=== PATIENT | male | born 1950 ===

== ENCOUNTER 2017-02-22 10:18 | Inpatient (IN) ==
[2017-02-22] MEDS ORDERED: chlordiazePOXIDE 25 MG CAPSULE PO PRN (12:00)
[2017-02-22] MEDS ORDERED: LORazepam 2 MG/1 ML VIAL IV PRN (12:00)
[2017-02-22] MEDS: ALBUTEROL/IPRATROPIUM 3 ML NEB RESP TX SCH ×2 (12:30→20:50)
[2017-02-22 14:22] LABS: Bilirubin,Direct 3.23 MG/DL (0.0-0.20); Bilirubin,Indirect 1.2 MG/DL (0.0-1.0); Bilirubin,Total 4.4 MG/DL (0.2-1.0); Total Protein 6.9 G/DL (6.4-8.3)
[2017-02-22] MEDS: PIPERACILLIN/TAZOBACTAM 3,375 MG in SODIUM CHLORIDE 0.9% 100 ML IV SCH ×2 (14:30→21:37)
[2017-02-22] MEDS: guaiFENesin 200 MG/10 ML UDCUP PO PRN (15:30)
[2017-02-22] MEDS: ACETAMINOPHEN 325 MG TABLET PO PRN (15:31)
[2017-02-22] MEDS: VANCOMYCIN INJ 1,250 MG in SODIUM CHLORIDE 0.45% 250 ML IV SCH (18:17)
[2017-02-22] MEDS: guaiFENesin/DM ER 600-30 MG TABLET PO SCH (20:38)
[2017-02-22] MEDS: OSELTAMIVIR 75 MG CAPSULE PO SCH (20:38)
[2017-02-23] MEDS: ALBUTEROL/IPRATROPIUM 3 ML NEB RESP TX SCH ×4 (00:34→19:40)
[2017-02-23] MEDS: PIPERACILLIN/TAZOBACTAM 3,375 MG in SODIUM CHLORIDE 0.9% 100 ML IV SCH ×3 (05:11→21:18)
[2017-02-23] MEDS: ACETAMINOPHEN 325 MG TABLET PO PRN (05:52)
[2017-02-23 08:45] LABS: Basophils # 0.1 10*3/uL (0.0-0.2); Basophils % 0.5 % (0.0-0.8); Eosinophils % 0.4 % (0.00-10.9); Hematocrit 27.1 VOL% (42.0-52.0); Immature Granulocytes % 1.2 %; Immature Granulocytes Absolute 0.12 #; Lymphocytes # 0.8 10*3/uL (1.4-4.0); Lymphocytes % 7.3 % (21.2-54.2); Mean Corpuscular HGB Conc 36.9 GM/DL (32-36); Mean Corpuscular Hemoglobin 40 PG (27-34); Mean Corpuscular Volume 107.1 FL (87-102); Mean Platelet Volume 11.3 FL (9.6-12.0); Monocytes # 0.9 10*3/uL (0.11-0.8); Monocytes % 8.4 % (1.7-12.7); Neutrophils # 8.5 10*3/uL (1.4-7.4); Neutrophils % 82.2 % (38.7-73.9); Red Blood Count 2.53 MC/CUMM (3.8-5.5); Red Cell Distribution Width 18.2 % (9.3-17.3); White Blood Count 10.3 T/CUMM (4-12)
[2017-02-23 08:52] LABS: Platelet Count 64 T/CUMM (130-400)
[2017-02-23 09:08] LABS: Albumin 1.6 G/DL (3.4-5.0); Bilirubin,Total 4.2 MG/DL (0.2-1.0); Calcium 7.2 MG/DL (8.5-10.1); Osmolality,Calculated 276.4 MOS/KG (273-304); Potassium 3.2 MMOL/L (3.5-5.1); Total Protein 5.6 G/DL (6.4-8.3)
[2017-02-23 09:14] LABS: Band Neutrophils 7 % (0-10); Eosinophils 1 % (0-10); Lymphocytes 2 % (20-55); Segmented Neutrophils 85 % (50-85); Total Cells Counted 100
[2017-02-23 09:15] LABS: Hypochromasia 1+; Platelet Estimate Decreased
[2017-02-23] MEDS: guaiFENesin/DM ER 600-30 MG TABLET PO SCH ×2 (09:40→21:18)
[2017-02-23] MEDS: OSELTAMIVIR 75 MG CAPSULE PO SCH ×2 (09:40→21:18)
[2017-02-23] MEDS: VANCOMYCIN INJ 1,250 MG in SODIUM CHLORIDE 0.45% 250 ML IV SCH (12:35)
[2017-02-24] MEDS: ALBUTEROL/IPRATROPIUM 3 ML NEB RESP TX SCH ×4 (00:43→21:03)
[2017-02-24] MEDS: VANCOMYCIN INJ 1,250 MG in SODIUM CHLORIDE 0.45% 250 ML IV SCH (05:17)
[2017-02-24 06:25] LABS: Calcium 7.1 MG/DL (8.5-10.1); Osmolality,Calculated 272.7 MOS/KG (273-304); Potassium 3.1 MMOL/L (3.5-5.1)
[2017-02-24] MEDS: PIPERACILLIN/TAZOBACTAM 3,375 MG in SODIUM CHLORIDE 0.9% 100 ML IV SCH ×3 (06:33→21:00)
[2017-02-24] MEDS: guaiFENesin/DM ER 600-30 MG TABLET PO SCH ×2 (09:05→21:01)
[2017-02-24] MEDS: OSELTAMIVIR 75 MG CAPSULE PO SCH ×2 (09:05→21:01)
[2017-02-24] MEDS: POTASSIUM CHLORIDE 20 MEQ TABLET PO SCH (09:05)
[2017-02-25] MEDS: ALBUTEROL/IPRATROPIUM 3 ML NEB RESP TX SCH ×4 (01:38→19:33)
[2017-02-25] MEDS: VANCOMYCIN INJ 1,250 MG in SODIUM CHLORIDE 0.45% 250 ML IV SCH ×2 (03:02→19:54)
[2017-02-25] MEDS: PIPERACILLIN/TAZOBACTAM 3,375 MG in SODIUM CHLORIDE 0.9% 100 ML IV SCH ×3 (05:00→21:50)
[2017-02-25 07:32] LABS: Basophils # 0.1 10*3/uL (0.0-0.2); Eosinophils # 0.5 10*3/uL (0.0-0.87); Hemoglobin 10.9 GM/DL (14.0-18.0); Immature Granulocytes % 0.4 %; Immature Granulocytes Absolute 0.02 #; Lymphocytes # 1.9 10*3/uL (1.4-4.0); Lymphocytes % 39.1 % (21.2-54.2); Mean Corpuscular HGB Conc 35.2 GM/DL (32-36); Mean Corpuscular Hemoglobin 38 PG (27-34); Mean Corpuscular Volume 109.2 FL (87-102); Mean Platelet Volume 11.2 FL (9.6-12.0); Monocytes # 0.6 10*3/uL (0.11-0.8); Monocytes % 13.3 % (1.7-12.7); Neutrophils # 1.7 10*3/uL (1.4-7.4); Neutrophils % 35.2 % (38.7-73.9); Red Blood Count 2.84 MC/CUMM (3.8-5.5); Red Cell Distribution Width 17.8 % (9.3-17.3); White Blood Count 4.8 T/CUMM (4-12)
[2017-02-25 07:39] LABS: Platelet Count 73 T/CUMM (130-400)
[2017-02-25 08:05] LABS: Calcium 7.6 MG/DL (8.5-10.1); Osmolality,Calculated 272.7 MOS/KG (273-304); Potassium 3.5 MMOL/L (3.5-5.1)
[2017-02-25 08:12] LABS: Band Neutrophils 2 % (0-10); Eosinophils 7 % (0-10); Giant Platelets Few; Hypochromasia 1+; Lymphocytes 36 % (20-55); Platelet Estimate Decreased; Segmented Neutrophils 42 % (50-85); Total Cells Counted 100
[2017-02-25] MEDS: POTASSIUM CHLORIDE 20 MEQ TABLET PO SCH (08:57)
[2017-02-25] MEDS: guaiFENesin 200 MG/10 ML UDCUP PO PRN (08:57)
[2017-02-25] MEDS: guaiFENesin/DM ER 600-30 MG TABLET PO SCH ×2 (08:58→19:59)
[2017-02-25] MEDS: OSELTAMIVIR 75 MG CAPSULE PO SCH ×2 (08:58→19:59)
[2017-02-26] MEDS: ALBUTEROL/IPRATROPIUM 3 ML NEB RESP TX SCH ×2 (00:04→07:27)
[2017-02-26] MEDS: guaiFENesin 200 MG/10 ML UDCUP PO PRN (04:46)
[2017-02-26] MEDS: PIPERACILLIN/TAZOBACTAM 3,375 MG in SODIUM CHLORIDE 0.9% 100 ML IV SCH (05:00)
[2017-02-26] MEDS: OSELTAMIVIR 75 MG CAPSULE PO SCH (09:10)
[2017-02-26] MEDS: guaiFENesin/DM ER 600-30 MG TABLET PO SCH (09:10)
[2017-02-26] MEDS: POTASSIUM CHLORIDE 20 MEQ TABLET PO SCH (09:10)
[2017-02-26 11:56] VITALS: BP 118/66
== END 2017-02-26 11:53 | disposition home or self-care (01) | DRG 195 ==
LOC: N.ED 10:18 → N.EDINP 10:38 → N.5E 13:11

== ENCOUNTER 2017-03-25 23:48 | Inpatient (IN) ==
[2017-03-26] MEDS ORDERED: FUROSEMIDE 40 MG/4 ML VIAL IV STA (02:30)
[2017-03-26] MEDS ORDERED: FUROSEMIDE 40 MG/4 ML VIAL ONE (02:31)
[2017-03-26] MEDS ORDERED: LORazepam 2 MG/1 ML VIAL IV STA (02:51)
[2017-03-26] MEDS ORDERED: LORazepam 2 MG/1 ML VIAL ONE (02:52)
[2017-03-26] MEDS ORDERED: ONDANSETRON 4 MG/2 ML VIAL IV PRN (03:31)
[2017-03-26] MEDS ORDERED: ALBUTEROL/IPRATROPIUM 3 ML NEB RESP TX PRN (03:36)
[2017-03-26 04:10] LABS: Apearance,Urine CLEAR (Clear); Bilirubin,Urine Negative (Negative); Blood, Urine Negative (Negative); Glucose,Urine (UA) Negative (Negative); Ketones,Urine Negative (Negative); Mucus,Urine Occasional /LPF (Occasional); Nitrite,Urine Negative (Negative); Protein,Urine Negative; RBC,Urine 2 /HPF (0-4); Urine Color Yellow (Yellow); Urine Specific Gravity 1.012 (1.001-1.035); WBC,Urine 2 /HPF (0-6)
[2017-03-26] MEDS: SODIUM CHLOR 0.45% KCL 20 MEQ 20 MEQ/1,000 ML BAG IV SCH ×2 (06:23→18:38)
[2017-03-26 07:02] LABS: Basophils # 0.1 10*3/uL (0.0-0.2); Basophils % 1.1 % (0.0-0.8); Eosinophils % 16.9 % (0.00-10.9); Hematocrit 29.8 VOL% (42.0-52.0); Hemoglobin 10.6 GM/DL (14.0-18.0); Immature Granulocytes % 0.2 %; Immature Granulocytes Absolute 0.01 #; Lymphocytes % 32.5 % (21.2-54.2); Mean Corpuscular HGB Conc 35.6 GM/DL (32-36); Mean Corpuscular Hemoglobin 38 PG (27-34); Mean Corpuscular Volume 106.8 FL (87-102); Mean Platelet Volume 11.5 FL (9.6-12.0); Monocytes % 16.6 % (1.7-12.7); Neutrophils % 32.7 % (38.7-73.9); Red Blood Count 2.79 MC/CUMM (3.8-5.5); Red Cell Distribution Width 16.1 % (9.3-17.3); White Blood Count 6.1 T/CUMM (4-12)
[2017-03-26 07:05] LABS: Platelet Count 88 T/CUMM (130-400)
[2017-03-26 07:25] LABS: Eosinophils 24 % (0-10); Giant Platelets Few; Hypochromasia 1+; Lymphocytes 22 % (20-55); Platelet Estimate Decreased; Segmented Neutrophils 44 % (50-85); Total Cells Counted 100
[2017-03-26 07:26] LABS: Target Cells Few
[2017-03-26 07:35] LABS: Albumin 1.8 G/DL (3.4-5.0); Bilirubin,Total 2.3 MG/DL (0.2-1.0); Calcium 7.7 MG/DL (8.5-10.1); Osmolality,Calculated 287.6 MOS/KG (273-304); Potassium 3.2 MMOL/L (3.5-5.1); Total Protein 6.8 G/DL (6.4-8.3)
[2017-03-26] MEDS: LACTULOSE 20 GM/30 ML UDCUP PO SCH ×5 (10:52→23:03)
[2017-03-26] MEDS: MULTIVITAMIN (CENTRUM) TABLET PO SCH (10:52)
[2017-03-26] MEDS: THIAMINE 100 MG TABLET PO SCH (10:53)
[2017-03-26] MEDS: FOLIC ACID 1 MG TABLET PO SCH (10:53)
[2017-03-26] MEDS: PANTOPRAZOLE 40 MG TABLET PO SCH (10:53)
[2017-03-26] MEDS ORDERED: POTASSIUM CHLORIDE RIDER 10 MEQ in PREMIX 1 EACH IV SCH (15:00)
[2017-03-26] MEDS ORDERED: LACTULOSE 160 GM/240 ML BOTTLE RECTAL SCH (15:00)
[2017-03-26 15:32] LABS: Folate 14.3 NG/ML (5.4-24.0)
[2017-03-26] MEDS ORDERED: POTASSIUM CHLORIDE INJ 40 MEQ in SODIUM CHLORIDE 0.9% 500 ML IV SCH (16:00)
[2017-03-26] MEDS: LORazepam 2 MG/1 ML VIAL IV PRN ×3 (16:20→22:11)
[2017-03-27] MEDS: LORazepam 2 MG/1 ML VIAL IV PRN (01:15)
[2017-03-27 05:20] LABS: Basophils # 0.1 10*3/uL (0.0-0.2); Basophils % 1.2 % (0.0-0.8); Hematocrit 27.5 VOL% (42.0-52.0); Hemoglobin 9.7 GM/DL (14.0-18.0); Immature Granulocytes % 0.7 %; Immature Granulocytes Absolute 0.04 #; Lymphocytes # 1.9 10*3/uL (1.4-4.0); Lymphocytes % 31.6 % (21.2-54.2); Mean Corpuscular HGB Conc 35.3 GM/DL (32-36); Mean Corpuscular Hemoglobin 38 PG (27-34); Mean Corpuscular Volume 107.4 FL (87-102); Mean Platelet Volume 11.8 FL (9.6-12.0); Monocytes # 0.8 10*3/uL (0.11-0.8); Neutrophils # 2.2 10*3/uL (1.4-7.4); Neutrophils % 36.5 % (38.7-73.9); Red Blood Count 2.56 MC/CUMM (3.8-5.5); Red Cell Distribution Width 16.2 % (9.3-17.3); White Blood Count 5.9 T/CUMM (4-12)
[2017-03-27] MEDS: LACTULOSE 20 GM/30 ML UDCUP PO SCH ×3 (05:24→18:13)
[2017-03-27 05:32] LABS: Platelet Count 76 T/CUMM (130-400)
[2017-03-27 05:43] LABS: Albumin 1.5 G/DL (3.4-5.0); Bilirubin,Total 2.7 MG/DL (0.2-1.0); Calcium 7.4 MG/DL (8.5-10.1); Potassium 3.5 MMOL/L (3.5-5.1); Total Protein 5.4 G/DL (6.4-8.3)
[2017-03-27 06:14] LABS: Eosinophils 16 % (0-10); Hypochromasia 1+; Lymphocytes 30 % (20-55); Segmented Neutrophils 44 % (50-85); Target Cells Few; Total Cells Counted 100
[2017-03-27 06:15] LABS: Macrocytosis 1+; Platelet Estimate Decreased
[2017-03-27] MEDS: SODIUM CHLOR 0.45% KCL 20 MEQ 20 MEQ/1,000 ML BAG IV SCH (07:22)
[2017-03-27] MEDS ORDERED: LACTULOSE 160 GM/240 ML BOTTLE RECTAL ONE (09:00)
[2017-03-27] MEDS: MULTIVITAMIN (CENTRUM) TABLET PO SCH (09:35)
[2017-03-27] MEDS: FOLIC ACID 1 MG TABLET PO SCH (09:35)
[2017-03-27] MEDS: PANTOPRAZOLE 40 MG TABLET PO SCH (09:35)
[2017-03-27] MEDS: THIAMINE 100 MG TABLET PO SCH (09:36)
[2017-03-27] MEDS ORDERED: LACTULOSE 160 GM/240 ML BOTTLE RECTAL SCH (12:30)
[2017-03-27] MEDS: POTASSIUM CHLORIDE 20 MEQ TABLET PO SCH (12:37)
[2017-03-27] MEDS: FUROSEMIDE 20 MG/2 ML VIAL IV SCH (15:45)
[2017-03-28] MEDS: LACTULOSE 20 GM/30 ML UDCUP PO SCH ×4 (02:15→17:03)
[2017-03-28 05:28] LABS: Basophils % 0.4 % (0.0-0.8); Eosinophils # 0.1 10*3/uL (0.0-0.87); Eosinophils % 0.7 % (0.00-10.9); Hematocrit 30.9 VOL% (42.0-52.0); Hemoglobin 10.8 GM/DL (14.0-18.0); Immature Granulocytes % 0.5 %; Immature Granulocytes Absolute 0.05 #; Lymphocytes # 1.4 10*3/uL (1.4-4.0); Mean Corpuscular Hemoglobin 38 PG (27-34); Mean Corpuscular Volume 108.4 FL (87-102); Mean Platelet Volume 12.3 FL (9.6-12.0); Monocytes # 1.4 10*3/uL (0.11-0.8); Monocytes % 15.5 % (1.7-12.7); Neutrophils # 6.2 10*3/uL (1.4-7.4); Neutrophils % 67.9 % (38.7-73.9); Platelet Count 77 T/CUMM (130-400); Red Blood Count 2.85 MC/CUMM (3.8-5.5); Red Cell Distribution Width 15.9 % (9.3-17.3); White Blood Count 9.2 T/CUMM (4-12)
[2017-03-28 06:00] LABS: Albumin 1.6 G/DL (3.4-5.0); Bilirubin,Total 3.5 MG/DL (0.2-1.0); Calcium 7.5 MG/DL (8.5-10.1); Osmolality,Calculated 287.7 MOS/KG (273-304); Potassium 3.5 MMOL/L (3.5-5.1); Total Protein 6.3 G/DL (6.4-8.3)
[2017-03-28 06:09] LABS: Giant Platelets Few; Hypochromasia 1+; Platelet Estimate Decreased
[2017-03-28] MEDS: THIAMINE 100 MG TABLET PO SCH (08:53)
[2017-03-28] MEDS: FOLIC ACID 1 MG TABLET PO SCH (08:53)
[2017-03-28] MEDS: PANTOPRAZOLE 40 MG TABLET PO SCH (08:53)
[2017-03-28] MEDS: MULTIVITAMIN (CENTRUM) TABLET PO SCH (08:53)
[2017-03-28] MEDS: POTASSIUM CHLORIDE 20 MEQ TABLET PO SCH (08:53)
[2017-03-28] MEDS: FUROSEMIDE 20 MG/2 ML VIAL IV SCH ×2 (09:04→15:28)
[2017-03-28 13:52] LABS: ABG Base Excess -1.3 MMOL/L (-2.5-2.5); ABG HCO3 23.3 MMOL/L (20-26); ABG Oxygen Saturation 98.7 % (95-100); ABG PCO2 35.7 MM HG (35-48); ABG PH 7.414 (7.35-7.45); ABG TCO2 20.7 MMOL/L (23-27)
[2017-03-28] MEDS ORDERED: GENTAMICIN 0.3% OPH OINT 3.5 GM TUBE BOTH EYES SCH (15:00)
[2017-03-28] MEDS: RIFAXIMIN 550 MG TABLET PO SCH ×2 (15:28→20:40)
[2017-03-28] MEDS: GENTAMICIN 0.3% OPH SOLN 5 ML BOTTLE BOTH EYES SCH (20:38)
[2017-03-29] MEDS: LACTULOSE 20 GM/30 ML UDCUP PO SCH ×4 (01:43→17:51)
[2017-03-29 05:45] LABS: Basophils # 0.1 10*3/uL (0.0-0.2); Eosinophils # 1.4 10*3/uL (0.0-0.87); Eosinophils % 14.6 % (0.00-10.9); Hematocrit 29.6 VOL% (42.0-52.0); Hemoglobin 10.3 GM/DL (14.0-18.0); Immature Granulocytes % 0.4 %; Immature Granulocytes Absolute 0.04 #; Lymphocytes # 2.6 10*3/uL (1.4-4.0); Lymphocytes % 28.2 % (21.2-54.2); Mean Corpuscular HGB Conc 34.8 GM/DL (32-36); Mean Corpuscular Hemoglobin 38 PG (27-34); Mean Corpuscular Volume 107.6 FL (87-102); Mean Platelet Volume 11.4 FL (9.6-12.0); Monocytes # 1.5 10*3/uL (0.11-0.8); Monocytes % 15.7 % (1.7-12.7); Neutrophils # 3.7 10*3/uL (1.4-7.4); Neutrophils % 40.1 % (38.7-73.9); Platelet Count 72 T/CUMM (130-400); Red Blood Count 2.75 MC/CUMM (3.8-5.5); Red Cell Distribution Width 15.4 % (9.3-17.3); White Blood Count 9.3 T/CUMM (4-12)
[2017-03-29 06:31] LABS: Albumin 1.6 G/DL (3.4-5.0); Bilirubin,Total 3.4 MG/DL (0.2-1.0); Calcium 7.8 MG/DL (8.5-10.1); Osmolality,Calculated 280.3 MOS/KG (273-304); Potassium 3.4 MMOL/L (3.5-5.1); Total Protein 6.2 G/DL (6.4-8.3)
[2017-03-29 06:47] LABS: Eosinophils 14 % (0-10); Lymphocytes 19 % (20-55); Macrocytosis 2+; Platelet Estimate Decreased; Segmented Neutrophils 61 % (50-85); Total Cells Counted 100
[2017-03-29] MEDS: FUROSEMIDE 20 MG/2 ML VIAL IV SCH (08:53)
[2017-03-29] MEDS: FOLIC ACID 1 MG TABLET PO SCH (08:54)
[2017-03-29] MEDS: RIFAXIMIN 550 MG TABLET PO SCH ×2 (08:54→21:32)
[2017-03-29] MEDS: PANTOPRAZOLE 40 MG TABLET PO SCH (08:54)
[2017-03-29] MEDS: GENTAMICIN 0.3% OPH SOLN 5 ML BOTTLE BOTH EYES SCH ×4 (08:54→21:32)
[2017-03-29] MEDS: THIAMINE 100 MG TABLET PO SCH (08:54)
[2017-03-29] MEDS: MULTIVITAMIN (CENTRUM) TABLET PO SCH (08:54)
[2017-03-29] MEDS: POTASSIUM CHLORIDE 20 MEQ TABLET PO SCH (08:59)
[2017-03-30] MEDS: LACTULOSE 20 GM/30 ML UDCUP PO SCH ×4 (01:50→18:20)
[2017-03-30 05:00] LABS: Basophils # 0.1 10*3/uL (0.0-0.2); Basophils % 0.8 % (0.0-0.8); Eosinophils # 1.7 10*3/uL (0.0-0.87); Eosinophils % 21.5 % (0.00-10.9); Hemoglobin 10.6 GM/DL (14.0-18.0); Immature Granulocytes % 0.4 %; Immature Granulocytes Absolute 0.03 #; Lymphocytes # 2.1 10*3/uL (1.4-4.0); Lymphocytes % 26.4 % (21.2-54.2); Mean Corpuscular HGB Conc 36.6 GM/DL (32-36); Mean Corpuscular Hemoglobin 39 PG (27-34); Mean Corpuscular Volume 105.5 FL (87-102); Mean Platelet Volume 12.7 FL (9.6-12.0); Monocytes # 1.1 10*3/uL (0.11-0.8); Neutrophils # 2.9 10*3/uL (1.4-7.4); Neutrophils % 36.9 % (38.7-73.9); Platelet Count 77 T/CUMM (130-400); Red Blood Count 2.75 MC/CUMM (3.8-5.5); Red Cell Distribution Width 15.3 % (9.3-17.3); White Blood Count 7.8 T/CUMM (4-12)
[2017-03-30 05:31] LABS: Albumin 1.6 G/DL (3.4-5.0); Bilirubin,Total 2.8 MG/DL (0.2-1.0); Calcium 7.6 MG/DL (8.5-10.1); Osmolality,Calculated 273.7 MOS/KG (273-304); Potassium 3.5 MMOL/L (3.5-5.1); Total Protein 6.1 G/DL (6.4-8.3)
[2017-03-30 05:35] LABS: Band Neutrophils 1 % (0-10); Eosinophils 25 % (0-10); Hypochromasia 1+; Lymphocytes 23 % (20-55); Macrocytosis 1+; Platelet Estimate Decreased; Segmented Neutrophils 44 % (50-85); Target Cells Slight; Total Cells Counted 100
[2017-03-30] MEDS: PANTOPRAZOLE 40 MG TABLET PO SCH (10:21)
[2017-03-30] MEDS: MULTIVITAMIN (CENTRUM) TABLET PO SCH (10:21)
[2017-03-30] MEDS: FOLIC ACID 1 MG TABLET PO SCH (10:21)
[2017-03-30] MEDS: POTASSIUM CHLORIDE 20 MEQ TABLET PO SCH (10:21)
[2017-03-30] MEDS: THIAMINE 100 MG TABLET PO SCH (10:21)
[2017-03-30] MEDS: RIFAXIMIN 550 MG TABLET PO SCH ×2 (10:22→20:30)
[2017-03-30] MEDS: GENTAMICIN 0.3% OPH SOLN 5 ML BOTTLE BOTH EYES SCH ×3 (12:30→20:28)
[2017-03-30] MEDS: SPIRONOLACTONE 25 MG TABLET PO SCH (18:20)
[2017-03-30] MEDS: FUROSEMIDE 40 MG TABLET PO SCH (18:20)
[2017-03-30] MEDS: cefTRIAXone 2,000 MG in SYRINGE 1 EACH IV SCH (18:20)
[2017-03-30] MEDS: LACTULOSE 160 GM/240 ML BOTTLE RECTAL SCH (18:20)
[2017-03-31] MEDS: LACTULOSE 20 GM/30 ML UDCUP PO SCH ×5 (00:27→23:54)
[2017-03-31] MEDS: LACTULOSE 160 GM/240 ML BOTTLE RECTAL SCH ×3 (01:00→14:05)
[2017-03-31 06:06] LABS: Calcium 7.3 MG/DL (8.5-10.1); Osmolality,Calculated 275.5 MOS/KG (273-304); Potassium 3.4 MMOL/L (3.5-5.1)
[2017-03-31] MEDS: FUROSEMIDE 40 MG TABLET PO SCH (09:47)
[2017-03-31] MEDS: SPIRONOLACTONE 25 MG TABLET PO SCH (09:47)
[2017-03-31] MEDS: MULTIVITAMIN (CENTRUM) TABLET PO SCH (09:48)
[2017-03-31] MEDS: RIFAXIMIN 550 MG TABLET PO SCH ×2 (09:49→20:55)
[2017-03-31] MEDS: POTASSIUM CHLORIDE 20 MEQ TABLET PO SCH (09:50)
[2017-03-31] MEDS: THIAMINE 100 MG TABLET PO SCH (09:51)
[2017-03-31] MEDS: FOLIC ACID 1 MG TABLET PO SCH (09:52)
[2017-03-31] MEDS: PANTOPRAZOLE 40 MG TABLET PO SCH (09:52)
[2017-03-31] MEDS: GENTAMICIN 0.3% OPH SOLN 5 ML BOTTLE BOTH EYES SCH ×3 (09:54→20:56)
[2017-03-31] MEDS: cefTRIAXone 2,000 MG in SYRINGE 1 EACH IV SCH (17:50)
[2017-04-01] MEDS: traMADol 50 MG TABLET PO PRN ×2 (01:24→11:20)
[2017-04-01 05:35] LABS: Albumin 1.5 G/DL (3.4-5.0); Bilirubin,Total 1.9 MG/DL (0.2-1.0); Calcium 7.4 MG/DL (8.5-10.1); Total Protein 6.1 G/DL (6.4-8.3)
[2017-04-01 05:36] LABS: Osmolality,Calculated 273.5 MOS/KG (273-304); Potassium 3.5 MMOL/L (3.5-5.1)
[2017-04-01] MEDS: LACTULOSE 20 GM/30 ML UDCUP PO SCH ×3 (06:42→21:50)
[2017-04-01] MEDS: MULTIVITAMIN (CENTRUM) TABLET PO SCH (11:13)
[2017-04-01] MEDS: RIFAXIMIN 550 MG TABLET PO SCH ×2 (11:14→21:50)
[2017-04-01] MEDS: PANTOPRAZOLE 40 MG TABLET PO SCH (11:15)
[2017-04-01] MEDS: POTASSIUM CHLORIDE 20 MEQ TABLET PO SCH (11:15)
[2017-04-01] MEDS: SPIRONOLACTONE 25 MG TABLET PO SCH (11:16)
[2017-04-01] MEDS: FUROSEMIDE 40 MG TABLET PO SCH (11:16)
[2017-04-01] MEDS: FOLIC ACID 1 MG TABLET PO SCH (11:16)
[2017-04-01] MEDS: THIAMINE 100 MG TABLET PO SCH (11:17)
[2017-04-01] MEDS: GENTAMICIN 0.3% OPH SOLN 5 ML BOTTLE BOTH EYES SCH ×3 (11:23→21:50)
[2017-04-01] MEDS: cefTRIAXone 2,000 MG in SYRINGE 1 EACH IV SCH (18:19)
[2017-04-02] MEDS: LACTULOSE 20 GM/30 ML UDCUP PO SCH ×4 (02:48→23:53)
[2017-04-02 06:27] LABS: Calcium 7.6 MG/DL (8.5-10.1)
[2017-04-02] MEDS: MULTIVITAMIN (CENTRUM) TABLET PO SCH (09:34)
[2017-04-02] MEDS: THIAMINE 100 MG TABLET PO SCH (09:34)
[2017-04-02] MEDS: RIFAXIMIN 550 MG TABLET PO SCH (09:34)
[2017-04-02] MEDS: SPIRONOLACTONE 25 MG TABLET PO SCH (09:35)
[2017-04-02] MEDS: FUROSEMIDE 40 MG TABLET PO SCH (09:35)
[2017-04-02] MEDS: FOLIC ACID 1 MG TABLET PO SCH (09:35)
[2017-04-02] MEDS: traMADol 50 MG TABLET PO PRN (09:35)
[2017-04-02] MEDS: PANTOPRAZOLE 40 MG TABLET PO SCH (09:35)
[2017-04-02] MEDS: POTASSIUM CHLORIDE 20 MEQ TABLET PO SCH (09:35)
[2017-04-02] MEDS: GENTAMICIN 0.3% OPH SOLN 5 ML BOTTLE BOTH EYES SCH ×3 (09:36→20:32)
[2017-04-02] MEDS ORDERED: TUBERCULIN SKIN TEST 0.1 ML SYRINGE INTRADERM ONE (12:38)
[2017-04-02] MEDS: cefTRIAXone 2,000 MG in SYRINGE 1 EACH IV SCH (18:37)
[2017-04-03] MEDS: LACTULOSE 20 GM/30 ML UDCUP PO SCH (06:16)
[2017-04-03] MEDS: THIAMINE 100 MG TABLET PO SCH (08:48)
[2017-04-03] MEDS: SPIRONOLACTONE 25 MG TABLET PO SCH (08:48)
[2017-04-03] MEDS: POTASSIUM CHLORIDE 20 MEQ TABLET PO SCH (08:48)
[2017-04-03] MEDS: FOLIC ACID 1 MG TABLET PO SCH (08:48)
[2017-04-03] MEDS: PANTOPRAZOLE 40 MG TABLET PO SCH (08:48)
[2017-04-03] MEDS: FUROSEMIDE 40 MG TABLET PO SCH (08:48)
[2017-04-03] MEDS: MULTIVITAMIN (CENTRUM) TABLET PO SCH (08:48)
[2017-04-03] MEDS: GENTAMICIN 0.3% OPH SOLN 5 ML BOTTLE BOTH EYES SCH (08:49)
[2017-04-03] MEDS ORDERED: LACTULOSE 20 GM/30 ML UDCUP PO SCH (08:52)
[2017-04-03 12:22] VITALS: BP 105/64
== END 2017-04-03 13:01 | disposition home or self-care (01) | DRG 441 ==
LOC: EDUNIT# → EDBD → N.ED 23:48 → SUATTDRO 03-26 03:31 → N.EDINP 03-26 03:31 → N.TELEN 03-26 04:06 → N.ICU 03-26 10:45 → N.4E 03-27 17:19
PROVIDERS: ADMIT Internal Medicine; ATTEND Internal Medicine

== ENCOUNTER 2017-04-27 12:28 | Inpatient (IN) ==
[2017-04-27] MEDS ORDERED: INFLUENZA VIRUS VACCINE 0.5 ML SYRINGE IM ONE (15:40)
[2017-04-27] MEDS ORDERED: PNEUMOCOCCAL VACCINE (13 VALENT) 0.5 ML SYRINGE IM ONE (15:40)
[2017-04-27] MEDS ORDERED: ONDANSETRON 4 MG/2 ML VIAL IV PRN (16:50)
[2017-04-27] MEDS ORDERED: LORazepam 0.5 MG TABLET PO PRN (17:13)
[2017-04-27 17:31] LABS: Basophils # 0.1 10*3/uL (0.0-0.2); Basophils % 1.5 % (0.0-0.8); Eosinophils # 0.7 10*3/uL (0.0-0.87); Hematocrit 30.1 VOL% (42.0-52.0); Hemoglobin 10.3 GM/DL (14.0-18.0); Immature Granulocytes % 0.2 %; Immature Granulocytes Absolute 0.01 #; Lymphocytes # 1.5 10*3/uL (1.4-4.0); Lymphocytes % 35.8 % (21.2-54.2); Mean Corpuscular HGB Conc 34.2 GM/DL (32-36); Mean Corpuscular Hemoglobin 37 PG (27-34); Mean Corpuscular Volume 108.3 FL (87-102); Mean Platelet Volume 11.2 FL (9.6-12.0); Monocytes # 0.5 10*3/uL (0.11-0.8); Monocytes % 12.9 % (1.7-12.7); Neutrophils # 1.3 10*3/uL (1.4-7.4); Neutrophils % 31.6 % (38.7-73.9); Red Blood Count 2.78 MC/CUMM (3.8-5.5); Red Cell Distribution Width 18.3 % (9.3-17.3); White Blood Count 4.1 T/CUMM (4-12)
[2017-04-27 17:37] LABS: Platelet Count 94 T/CUMM (130-400)
[2017-04-27 17:46] LABS: INR 1.3; PT Patient Result 13.4 SECS
[2017-04-27] MEDS: LACTULOSE 20 GM/30 ML UDCUP PO SCH ×2 (17:55→21:24)
[2017-04-27 18:00] LABS: Albumin 1.8 G/DL (3.4-5.0); Bilirubin,Total 2.2 MG/DL (0.2-1.0); Calcium 8.2 MG/DL (8.5-10.1); Osmolality,Calculated 285.7 MOS/KG (273-304); Potassium 3.5 MMOL/L (3.5-5.1); Total Protein 6.6 G/DL (6.4-8.3)
[2017-04-27] MEDS ORDERED: MULTIVITAMIN INJ 10 ML in SODIUM CHLORIDE 0.45% 1,000 ML IV SCH (18:00)
[2017-04-27] MEDS ORDERED: DEXTROSE 50% 25 GM/50 ML VIAL IV PRN (18:09)
[2017-04-27] MEDS ORDERED: GLUCAGON 1 MG VIAL IM PRN (18:09)
[2017-04-27 20:09] LABS: Eosinophils 24 % (0-10); Lymphocytes 23 % (20-55); Platelet Estimate Decreased; Segmented Neutrophils 41 % (50-85); Total Cells Counted 100
[2017-04-27] MEDS: MAGNESIUM OXIDE 400 MG TABLET PO SCH (21:24)
[2017-04-27] MEDS: RIFAXIMIN 550 MG TABLET PO SCH (21:24)
[2017-04-27] MEDS: POTASSIUM CHLORIDE INJ 40 MEQ in SODIUM CHLORIDE 0.45% 1,000 ML IV SCH (22:00)
[2017-04-28] MEDS: LACTULOSE 20 GM/30 ML UDCUP PO SCH ×6 (01:33→23:07)
[2017-04-28] MEDS: POTASSIUM CHLORIDE INJ 40 MEQ in SODIUM CHLORIDE 0.45% 1,000 ML IV SCH (04:27)
[2017-04-28 05:29] LABS: Basophils % 0.9 % (0.0-0.8); Eosinophils % 22.1 % (0.00-10.9); Hematocrit 26.4 VOL% (42.0-52.0); Hemoglobin 9.6 GM/DL (14.0-18.0); Lymphocytes # 1.5 10*3/uL (1.4-4.0); Lymphocytes % 33.8 % (21.2-54.2); Mean Corpuscular HGB Conc 36.4 GM/DL (32-36); Mean Corpuscular Hemoglobin 38 PG (27-34); Mean Corpuscular Volume 105.6 FL (87-102); Mean Platelet Volume 11.9 FL (9.6-12.0); Monocytes # 0.7 10*3/uL (0.11-0.8); Monocytes % 16.8 % (1.7-12.7); Neutrophils # 1.1 10*3/uL (1.4-7.4); Neutrophils % 26.4 % (38.7-73.9); Platelet Count 86 T/CUMM (130-400); Red Cell Distribution Width 18.5 % (9.3-17.3); White Blood Count 4.3 T/CUMM (4-12)
[2017-04-28 05:51] LABS: Albumin 1.6 G/DL (3.4-5.0); Bilirubin,Total 2.4 MG/DL (0.2-1.0); Calcium 8.1 MG/DL (8.5-10.1); Osmolality,Calculated 285.7 MOS/KG (273-304); Potassium 3.6 MMOL/L (3.5-5.1); Total Protein 6.1 G/DL (6.4-8.3)
[2017-04-28 06:04] LABS: Band Neutrophils 1 % (0-10); Eosinophils 30 % (0-10); Giant Platelets Few; Hypochromasia 1+; Lymphocytes 24 % (20-55); Macrocytosis Slight; Nucleated Red Blood Cells 1 (0-5); Ovalocytes Slight; Platelet Estimate Decreased; Segmented Neutrophils 33 % (50-85); Total Cells Counted 100
[2017-04-28 06:28] LABS: Apearance,Urine CLEAR (Clear); Bacteria,Urine Occasional /HPF (Few); Bilirubin,Urine Negative (Negative); Blood, Urine Negative (Negative); Glucose,Urine (UA) Negative (Negative); Ketones,Urine Negative (Negative); Mucus,Urine Occasional /LPF (Occasional); Nitrite,Urine Negative (Negative); Protein,Urine Negative; Urine Color Yellow (Yellow); Urine Specific Gravity 1.006 (1.001-1.035); WBC,Urine 1 /HPF (0-6)
[2017-04-28] MEDS: MAGNESIUM OXIDE 400 MG TABLET PO SCH ×2 (09:09→23:02)
[2017-04-28] MEDS: RIFAXIMIN 550 MG TABLET PO SCH ×2 (09:09→23:03)
[2017-04-28] MEDS: PANTOPRAZOLE 40 MG TABLET PO SCH (09:09)
[2017-04-28] MEDS: THIAMINE 200 MG/2 ML VIAL IV SCH (09:09)
[2017-04-29] MEDS: LACTULOSE 20 GM/30 ML UDCUP PO SCH ×3 (02:58→09:57)
[2017-04-29] MEDS: THIAMINE 200 MG/2 ML VIAL IV SCH (09:37)
[2017-04-29] MEDS: MAGNESIUM OXIDE 400 MG TABLET PO SCH (09:56)
[2017-04-29] MEDS: RIFAXIMIN 550 MG TABLET PO SCH (09:57)
[2017-04-29] MEDS: PANTOPRAZOLE 40 MG TABLET PO SCH (09:57)
[2017-04-29 12:21] VITALS: BP 142/64
[2017-05-04] MEDS ORDERED: ERGOCALCIFEROL 50,000 UNIT CAPSULE PO SCH (09:00)
== END 2017-04-29 13:48 | disposition home or self-care (01) | DRG 434 ==
LOC: N.2E 14:58 → SUATTDRO 14:58 → N.2E 15:23
PROVIDERS: ADMIT Internal Medicine; ATTEND Internal Medicine Geriatric Medicine

== ENCOUNTER 2017-05-03 11:31 | Inpatient (IN) ==
[2017-05-03] MEDS ORDERED: THIAMINE INJ 100 MG, FOLIC ACID INJ 1 MG, MAGNESIUM SULF INJ 2 GM, MULTIVITAMIN INJ 10 ... IV ONE (12:11)
[2017-05-03 12:59] LABS: Basophils # 0.1 10*3/uL (0.0-0.2); Basophils % 1.5 % (0.0-0.8); Eosinophils # 0.7 10*3/uL (0.0-0.87); Eosinophils % 17.4 % (0.00-10.9); Hematocrit 28.8 VOL% (42.0-52.0); Hemoglobin 9.8 GM/DL (14.0-18.0); Immature Granulocytes % 0.3 %; Immature Granulocytes Absolute 0.01 #; Lymphocytes # 1.2 10*3/uL (1.4-4.0); Lymphocytes % 30.7 % (21.2-54.2); Mean Corpuscular Hemoglobin 36 PG (27-34); Mean Corpuscular Volume 107.1 FL (87-102); Mean Platelet Volume 11.3 FL (9.6-12.0); Monocytes # 0.6 10*3/uL (0.11-0.8); Monocytes % 14.8 % (1.7-12.7); Neutrophils # 1.4 10*3/uL (1.4-7.4); Neutrophils % 35.3 % (38.7-73.9); Red Blood Count 2.69 MC/CUMM (3.8-5.5); Red Cell Distribution Width 18.5 % (9.3-17.3); White Blood Count 3.9 T/CUMM (4-12)
[2017-05-03 13:02] LABS: Platelet Count 89 T/CUMM (130-400)
[2017-05-03 13:20] LABS: Ammonia 110 UMOL/L (11-32)
[2017-05-03 13:23] LABS: Alanine Aminotransferase 35 U/L (16-61); Albumin 1.8 G/DL (3.4-5.0); Alkaline Phosphatase 184 U/L (45-117); Aspartate Amino Transferase 60 U/L (0-37); Blood Urea Nitrogen 12 MG/DL (7-18); Calcium 7.9 MG/DL (8.5-10.1); Glucose 92 MG/DL (74-106); Osmolality,Calculated 289.6 MOS/KG (273-304); Potassium 3.7 MMOL/L (3.5-5.1); Sodium 146 MMOL/L (136-145); Total Protein 6.1 G/DL (6.4-8.3)
[2017-05-03 15:54] LABS: Apearance,Urine CLEAR (Clear); Bilirubin,Urine Negative (Negative); Blood, Urine Negative (Negative); Glucose,Urine (UA) Negative (Negative); Ketones,Urine Negative (Negative); Mucus,Urine Occasional /LPF (Occasional); Nitrite,Urine Negative (Negative); Protein,Urine Negative; RBC,Urine 1 /HPF (0-4); Urine Color Yellow (Yellow); Urine Specific Gravity 1.013 (1.001-1.035); WBC,Urine 1 /HPF (0-6)
[2017-05-03 17:18] LABS: Eosinophils 19 % (0-10); Hypochromasia 2+; Lymphocytes 31 % (20-55); Platelet Estimate Decreased; Segmented Neutrophils 31 % (50-85); Total Cells Counted 100
[2017-05-03] MEDS: LACTULOSE 20 GM/30 ML UDCUP PO SCH ×2 (17:24→21:00)
[2017-05-03] MEDS ORDERED: ZIPRASIDONE 20 MG/1 ML VIAL IM PRN (18:33)
[2017-05-03] MEDS ORDERED: ZIPRASIDONE 20 MG/1 ML VIAL IM ONE (20:35)
[2017-05-03] MEDS: RIFAXIMIN 550 MG TABLET PO SCH (21:00)
[2017-05-03] MEDS: MAGNESIUM OXIDE 400 MG TABLET PO SCH (21:00)
[2017-05-03] MEDS: ENOXAPARIN 40 MG/0.4 ML SYRINGE SUBCUT SCH (21:03)
[2017-05-04] MEDS: LACTULOSE 20 GM/30 ML UDCUP PO SCH ×6 (01:39→21:07)
[2017-05-04] MEDS: MAGNESIUM OXIDE 400 MG TABLET PO SCH ×2 (08:50→21:07)
[2017-05-04] MEDS: RIFAXIMIN 550 MG TABLET PO SCH ×2 (08:50→21:07)
[2017-05-04] MEDS: ENOXAPARIN 40 MG/0.4 ML SYRINGE SUBCUT SCH (21:06)
[2017-05-04] MEDS: ONDANSETRON 4 MG/2 ML VIAL IV PRN (22:22)
[2017-05-04] MEDS: ALBUTEROL 2.5 MG/3 ML NEB RESP TX PRN (22:29)
[2017-05-05] MEDS: LACTULOSE 20 GM/30 ML UDCUP PO SCH ×6 (02:37→21:38)
[2017-05-05] MEDS: ALBUTEROL 2.5 MG/3 ML NEB RESP TX PRN (03:40)
[2017-05-05 05:15] LABS: Basophils # 0.1 10*3/uL (0.0-0.2); Basophils % 1.1 % (0.0-0.8); Eosinophils # 0.9 10*3/uL (0.0-0.87); Eosinophils % 12.4 % (0.00-10.9); Hemoglobin 10.5 GM/DL (14.0-18.0); Immature Granulocytes % 0.4 %; Immature Granulocytes Absolute 0.03 #; Lymphocytes # 1.5 10*3/uL (1.4-4.0); Lymphocytes % 21.2 % (21.2-54.2); Mean Corpuscular HGB Conc 33.9 GM/DL (32-36); Mean Corpuscular Hemoglobin 37 PG (27-34); Mean Corpuscular Volume 107.6 FL (87-102); Mean Platelet Volume 11.7 FL (9.6-12.0); Monocytes # 1.1 10*3/uL (0.11-0.8); Monocytes % 14.8 % (1.7-12.7); Neutrophils # 3.6 10*3/uL (1.4-7.4); Neutrophils % 50.1 % (38.7-73.9); Platelet Count 94 T/CUMM (130-400); Red Blood Count 2.88 MC/CUMM (3.8-5.5); Red Cell Distribution Width 18.3 % (9.3-17.3); White Blood Count 7.1 T/CUMM (4-12)
[2017-05-05 05:46] LABS: Eosinophils 11 % (0-10); Hypochromasia 1+; Lymphocytes 19 % (20-55); Macrocytosis Slight; Ovalocytes Slight; Platelet Estimate Decreased; Segmented Neutrophils 67 % (50-85); Total Cells Counted 100
[2017-05-05 05:47] LABS: Albumin 1.9 G/DL (3.4-5.0); Calcium 7.9 MG/DL (8.5-10.1); Osmolality,Calculated 288.6 MOS/KG (273-304); Potassium 3.3 MMOL/L (3.5-5.1)
[2017-05-05] MEDS: MAGNESIUM OXIDE 400 MG TABLET PO SCH ×2 (08:58→21:37)
[2017-05-05] MEDS: RIFAXIMIN 550 MG TABLET PO SCH ×2 (08:58→21:37)
[2017-05-05] MEDS ORDERED: NITROGLYCERIN SL 0.4 MG TABLET SL ONE (11:21)
[2017-05-05] MEDS ORDERED: ASPIRIN CHEW 81 MG TABLET PO ONE ×2 (11:21→11:23)
[2017-05-05] MEDS ORDERED: NITROGLYCERIN SL 0.4 MG TABLET SL PRN (11:23)
[2017-05-05] MEDS: ONDANSETRON 4 MG/2 ML VIAL IV PRN (13:33)
[2017-05-05] MEDS: ENOXAPARIN 40 MG/0.4 ML SYRINGE SUBCUT SCH (21:39)
[2017-05-05] MEDS: PROPRANOLOL 10 MG TABLET PO SCH (21:42)
[2017-05-05] MEDS: ACETAMINOPHEN 325 MG TABLET PO PRN (23:34)
[2017-05-06] MEDS: LACTULOSE 20 GM/30 ML UDCUP PO SCH ×6 (01:53→21:00)
[2017-05-06 05:45] LABS: Basophils # 0.1 10*3/uL (0.0-0.2); Basophils % 0.8 % (0.0-0.8); Eosinophils # 1.7 10*3/uL (0.0-0.87); Eosinophils % 22.8 % (0.00-10.9); Hematocrit 30.9 VOL% (42.0-52.0); Hemoglobin 10.8 GM/DL (14.0-18.0); Immature Granulocytes % 0.3 %; Immature Granulocytes Absolute 0.02 #; Lymphocytes # 1.8 10*3/uL (1.4-4.0); Lymphocytes % 23.2 % (21.2-54.2); Mean Corpuscular Hemoglobin 37 PG (27-34); Mean Corpuscular Volume 106.9 FL (87-102); Mean Platelet Volume 11.3 FL (9.6-12.0); Monocytes # 0.9 10*3/uL (0.11-0.8); Monocytes % 12.5 % (1.7-12.7); Neutrophils # 3.1 10*3/uL (1.4-7.4); Neutrophils % 40.4 % (38.7-73.9); Red Blood Count 2.89 MC/CUMM (3.8-5.5); Red Cell Distribution Width 18.1 % (9.3-17.3); White Blood Count 7.6 T/CUMM (4-12)
[2017-05-06 05:47] LABS: Platelet Count 84 T/CUMM (130-400)
[2017-05-06 06:23] LABS: Calcium 7.9 MG/DL (8.5-10.1); Osmolality,Calculated 283.8 MOS/KG (273-304); Potassium 3.4 MMOL/L (3.5-5.1); Risk Ratio 4.4; VLDL CHOLESTEROL 8.4 MG/DL
[2017-05-06 07:17] LABS: Eosinophils 27 % (0-10); Hypochromasia 1+; Lymphocytes 17 % (20-55); Macrocytosis Slight; Ovalocytes Slight; Platelet Estimate Decreased; Segmented Neutrophils 39 % (50-85); Total Cells Counted 100
[2017-05-06] MEDS: MAGNESIUM OXIDE 400 MG TABLET PO SCH ×2 (08:42→20:58)
[2017-05-06] MEDS: ASPIRIN EC 81 MG TABLET PO SCH (08:42)
[2017-05-06] MEDS: PROPRANOLOL 10 MG TABLET PO SCH (08:42)
[2017-05-06] MEDS: RIFAXIMIN 550 MG TABLET PO SCH ×2 (08:42→20:58)
[2017-05-06] MEDS ORDERED: ALUM/MAG/SIMETH/LIDO VISC 1:1 30 ML BOTTLE PO ONE ×2 (12:33→13:00)
[2017-05-06] MEDS: PANTOPRAZOLE 40 MG TABLET PO SCH (14:33)
[2017-05-06] MEDS: ONDANSETRON 4 MG/2 ML VIAL IV PRN (23:18)
[2017-05-07] MEDS: LACTULOSE 20 GM/30 ML UDCUP PO SCH ×6 (01:41→22:00)
[2017-05-07 07:35] LABS: Basophils # 0.1 10*3/uL (0.0-0.2); Basophils % 0.8 % (0.0-0.8); Eosinophils # 1.5 10*3/uL (0.0-0.87); Eosinophils % 23.6 % (0.00-10.9); Hematocrit 29.1 VOL% (42.0-52.0); Immature Granulocytes % 0.3 %; Immature Granulocytes Absolute 0.02 #; Lymphocytes # 1.5 10*3/uL (1.4-4.0); Lymphocytes % 23.5 % (21.2-54.2); Mean Corpuscular HGB Conc 34.4 GM/DL (32-36); Mean Corpuscular Hemoglobin 37 PG (27-34); Mean Corpuscular Volume 107.4 FL (87-102); Mean Platelet Volume 11.5 FL (9.6-12.0); Monocytes # 0.8 10*3/uL (0.11-0.8); Monocytes % 13.1 % (1.7-12.7); Neutrophils # 2.4 10*3/uL (1.4-7.4); Neutrophils % 38.7 % (38.7-73.9); Red Blood Count 2.71 MC/CUMM (3.8-5.5); Red Cell Distribution Width 17.9 % (9.3-17.3); White Blood Count 6.3 T/CUMM (4-12)
[2017-05-07 07:38] LABS: Platelet Count 85 T/CUMM (130-400)
[2017-05-07 07:58] LABS: Band Neutrophils 1 % (0-10); Eosinophils 20 % (0-10); Hypochromasia 1+; Lymphocytes 17 % (20-55); Macrocytosis 1+; Platelet Estimate Decreased; Segmented Neutrophils 48 % (50-85); Total Cells Counted 100
[2017-05-07 08:01] LABS: Potassium 3.6 MMOL/L (3.5-5.1)
[2017-05-07] MEDS ORDERED: PROPOFOL 200 MG/20 ML VIAL IV ONE (08:10)
[2017-05-07] MEDS ORDERED: LIDOCAINE 100 MG/5 ML SYRINGE ONE (08:10)
[2017-05-07] MEDS ORDERED: GLYCOPYRROLATE 0.4 MG/2 ML VIAL ONE (08:10)
[2017-05-07] MEDS: ASPIRIN EC 81 MG TABLET PO SCH (09:00)
[2017-05-07] MEDS: PANTOPRAZOLE 40 MG TABLET PO SCH ×2 (09:00→18:08)
[2017-05-07] MEDS: MAGNESIUM OXIDE 400 MG TABLET PO SCH ×2 (09:00→22:00)
[2017-05-07] MEDS: RIFAXIMIN 550 MG TABLET PO SCH ×2 (09:00→22:00)
[2017-05-07 12:36] LABS: Troponin I Only 0.063 NG/ML (0.00-0.045)
[2017-05-07 16:39] LABS: Troponin I Only 0.029 NG/ML (0.00-0.045)
[2017-05-07 17:43] LABS: Apearance,Urine CLOUDY (Clear); Bacteria,Urine Many /HPF (Few); Bilirubin,Urine Negative (Negative); Blood, Urine Small mg/dL (Negative); Glucose,Urine (UA) Negative (Negative); Ketones,Urine 5 mg/dL (Negative); Mucus,Urine Few /LPF (Occasional); Nitrite,Urine Negative (Negative); Protein,Urine 100 MG/DL; Urine Color Yellow (Yellow); Urine Specific Gravity 1.016 (1.001-1.035); WBC,Urine 1391 /HPF (0-6)
[2017-05-07 18:45] LABS: Troponin I Only 0.033 NG/ML (0.00-0.045)
[2017-05-08] MEDS: LACTULOSE 20 GM/30 ML UDCUP PO SCH ×6 (01:59→21:54)
[2017-05-08 06:49] LABS: Osmolality,Calculated 283.1 MOS/KG (273-304); Potassium 4.4 MMOL/L (3.5-5.1)
[2017-05-08 08:15] LABS: Basophils # 0.1 10*3/uL (0.0-0.2); Basophils % 0.9 % (0.0-0.8); Hematocrit 32.3 VOL% (42.0-52.0); Immature Granulocytes % 0.5 %; Immature Granulocytes Absolute 0.03 #; Lymphocytes # 1.7 10*3/uL (1.4-4.0); Lymphocytes % 26.8 % (21.2-54.2); Mean Corpuscular HGB Conc 34.1 GM/DL (32-36); Mean Corpuscular Hemoglobin 36 PG (27-34); Mean Corpuscular Volume 106.6 FL (87-102); Mean Platelet Volume 11.8 FL (9.6-12.0); Monocytes # 0.9 10*3/uL (0.11-0.8); Monocytes % 14.5 % (1.7-12.7); Neutrophils # 2.7 10*3/uL (1.4-7.4); Neutrophils % 41.3 % (38.7-73.9); Red Blood Count 3.03 MC/CUMM (3.8-5.5); Red Cell Distribution Width 17.6 % (9.3-17.3); White Blood Count 6.4 T/CUMM (4-12)
[2017-05-08 08:26] LABS: Platelet Count 94 T/CUMM (130-400)
[2017-05-08 08:56] LABS: Band Neutrophils 1 % (0-10); Eosinophils 11 % (0-10); Hypochromasia 1+; Lymphocytes 20 % (20-55); Macrocytosis 1+; Segmented Neutrophils 59 % (50-85); Target Cells Few; Total Cells Counted 100
[2017-05-08 08:57] LABS: Platelet Estimate Decreased
[2017-05-08] MEDS: PANTOPRAZOLE 40 MG TABLET PO SCH (10:15)
[2017-05-08] MEDS: MAGNESIUM OXIDE 400 MG TABLET PO SCH ×2 (10:15→21:53)
[2017-05-08] MEDS: ASPIRIN EC 81 MG TABLET PO SCH (10:15)
[2017-05-08] MEDS: RIFAXIMIN 550 MG TABLET PO SCH ×2 (10:15→21:54)
[2017-05-08] MEDS: cefTRIAXone 1,000 MG in SYRINGE 1 EACH IV SCH (11:12)
[2017-05-09] MEDS: LACTULOSE 20 GM/30 ML UDCUP PO SCH ×6 (01:53→22:35)
[2017-05-09 05:53] LABS: Basophils # 0.1 10*3/uL (0.0-0.2); Basophils % 1.3 % (0.0-0.8); Eosinophils # 1.4 10*3/uL (0.0-0.87); Eosinophils % 25.8 % (0.00-10.9); Hematocrit 28.8 VOL% (42.0-52.0); Hemoglobin 10.3 GM/DL (14.0-18.0); Immature Granulocytes % 0.4 %; Immature Granulocytes Absolute 0.02 #; Lymphocytes # 1.5 10*3/uL (1.4-4.0); Lymphocytes % 28.9 % (21.2-54.2); Mean Corpuscular HGB Conc 35.8 GM/DL (32-36); Mean Corpuscular Hemoglobin 37 PG (27-34); Mean Corpuscular Volume 103.2 FL (87-102); Mean Platelet Volume 11.7 FL (9.6-12.0); Monocytes # 0.9 10*3/uL (0.11-0.8); Neutrophils # 1.5 10*3/uL (1.4-7.4); Neutrophils % 27.6 % (38.7-73.9); Red Blood Count 2.79 MC/CUMM (3.8-5.5); Red Cell Distribution Width 17.3 % (9.3-17.3); White Blood Count 5.3 T/CUMM (4-12)
[2017-05-09 05:55] LABS: Platelet Count 79 T/CUMM (130-400)
[2017-05-09 06:15] LABS: Eosinophils 24 % (0-10); Lymphocytes 23 % (20-55); Segmented Neutrophils 45 % (50-85); Total Cells Counted 100
[2017-05-09 06:16] LABS: Giant Platelets Few; Hypochromasia 1+; Macrocytosis Slight; Ovalocytes Slight; Platelet Estimate Decreased
[2017-05-09 06:21] LABS: Calcium 7.8 MG/DL (8.5-10.1); Potassium 3.5 MMOL/L (3.5-5.1)
[2017-05-09 07:52] LABS: Folate 11.2 NG/ML (5.4-24.0)
[2017-05-09] MEDS: RIFAXIMIN 550 MG TABLET PO SCH ×2 (09:57→22:34)
[2017-05-09] MEDS: PANTOPRAZOLE 40 MG TABLET PO SCH (09:57)
[2017-05-09] MEDS: MAGNESIUM OXIDE 400 MG TABLET PO SCH ×2 (09:57→22:33)
[2017-05-09] MEDS: ASPIRIN EC 81 MG TABLET PO SCH (09:57)
[2017-05-09] MEDS: cefTRIAXone 1,000 MG in SYRINGE 1 EACH IV SCH (12:07)
[2017-05-09 12:51] LABS: Hematocrit 33.1 VOL% (42.0-52.0); Hemoglobin 11.4 GM/DL (14.0-18.0)
[2017-05-09] MEDS: ACETAMINOPHEN 325 MG TABLET PO PRN (22:35)
[2017-05-10] MEDS: LACTULOSE 20 GM/30 ML UDCUP PO SCH ×6 (01:55→21:34)
[2017-05-10 06:19] LABS: Basophils # 0.1 10*3/uL (0.0-0.2); Basophils % 1.2 % (0.0-0.8); Eosinophils # 1.2 10*3/uL (0.0-0.87); Hematocrit 27.8 VOL% (42.0-52.0); Hemoglobin 9.8 GM/DL (14.0-18.0); Immature Granulocytes % 0.6 %; Immature Granulocytes Absolute 0.03 #; Lymphocytes # 1.6 10*3/uL (1.4-4.0); Lymphocytes % 31.9 % (21.2-54.2); Mean Corpuscular HGB Conc 35.3 GM/DL (32-36); Mean Corpuscular Hemoglobin 37 PG (27-34); Mean Corpuscular Volume 105.3 FL (87-102); Monocytes # 0.7 10*3/uL (0.11-0.8); Monocytes % 13.6 % (1.7-12.7); Neutrophils # 1.4 10*3/uL (1.4-7.4); Neutrophils % 28.7 % (38.7-73.9); Platelet Count 77 T/CUMM (130-400); Red Blood Count 2.64 MC/CUMM (3.8-5.5); Red Cell Distribution Width 17.3 % (9.3-17.3); White Blood Count 4.9 T/CUMM (4-12)
[2017-05-10 06:48] LABS: Band Neutrophils 3 % (0-10); Eosinophils 17 % (0-10); Lymphocytes 33 % (20-55); Myelocytes 2 %; Segmented Neutrophils 41 % (50-85); Total Cells Counted 100
[2017-05-10 06:49] LABS: Anisocytosis 1+; Hypochromasia 1+
[2017-05-10 06:50] LABS: Platelet Estimate Decreased; Target Cells 1+
[2017-05-10 06:52] LABS: Calcium 7.5 MG/DL (8.5-10.1); Osmolality,Calculated 285.7 MOS/KG (273-304); Potassium 3.7 MMOL/L (3.5-5.1)
[2017-05-10] MEDS ORDERED: ERGOCALCIFEROL 50,000 UNIT CAPSULE PO SCH (09:00)
[2017-05-10] MEDS: MAGNESIUM OXIDE 400 MG TABLET PO SCH ×2 (09:34→20:28)
[2017-05-10] MEDS: PANTOPRAZOLE 40 MG TABLET PO SCH (09:34)
[2017-05-10] MEDS: cefTRIAXone 1,000 MG in SYRINGE 1 EACH IV SCH (09:34)
[2017-05-10] MEDS: ASPIRIN EC 81 MG TABLET PO SCH (09:34)
[2017-05-10] MEDS: RIFAXIMIN 550 MG TABLET PO SCH ×2 (09:35→20:28)
[2017-05-11] MEDS: LACTULOSE 20 GM/30 ML UDCUP PO SCH ×6 (01:37→21:21)
[2017-05-11 05:08] LABS: Basophils # 0.1 10*3/uL (0.0-0.2); Basophils % 1.3 % (0.0-0.8); Eosinophils # 1.2 10*3/uL (0.0-0.87); Eosinophils % 25.4 % (0.00-10.9); Hematocrit 33.2 VOL% (42.0-52.0); Hemoglobin 11.5 GM/DL (14.0-18.0); Immature Granulocytes % 0.4 %; Immature Granulocytes Absolute 0.02 #; Lymphocytes # 1.4 10*3/uL (1.4-4.0); Mean Corpuscular HGB Conc 34.6 GM/DL (32-36); Mean Corpuscular Hemoglobin 38 PG (27-34); Mean Corpuscular Volume 110.3 FL (87-102); Mean Platelet Volume 12.6 FL (9.6-12.0); Monocytes # 0.6 10*3/uL (0.11-0.8); Monocytes % 13.1 % (1.7-12.7); Neutrophils # 1.3 10*3/uL (1.4-7.4); Neutrophils % 28.8 % (38.7-73.9); Platelet Count 79 T/CUMM (130-400); Red Blood Count 3.01 MC/CUMM (3.8-5.5); Red Cell Distribution Width 18.2 % (9.3-17.3); White Blood Count 4.5 T/CUMM (4-12)
[2017-05-11 05:18] LABS: Calcium 7.9 MG/DL (8.5-10.1); Osmolality,Calculated 280.1 MOS/KG (273-304); Potassium 4.5 MMOL/L (3.5-5.1)
[2017-05-11 05:29] LABS: Band Neutrophils 5 % (0-10); Lymphocytes 34 % (20-55); Macrocytosis 3+; Platelet Estimate Decreased; Segmented Neutrophils 57 % (50-85); Total Cells Counted 100
[2017-05-11 06:50] LABS: Albumin 1.7 G/DL (3.4-5.0); Bilirubin,Direct 0.6 MG/DL (0.0-0.20); Bilirubin,Indirect 0.6 MG/DL (0.0-1.0); Bilirubin,Total 1.2 MG/DL (0.2-1.0)
[2017-05-11] MEDS: MAGNESIUM OXIDE 400 MG TABLET PO SCH ×2 (09:42→21:21)
[2017-05-11] MEDS: cefTRIAXone 1,000 MG in SYRINGE 1 EACH IV SCH (09:42)
[2017-05-11] MEDS: ASPIRIN EC 81 MG TABLET PO SCH (09:42)
[2017-05-11] MEDS: PANTOPRAZOLE 40 MG TABLET PO SCH (09:42)
[2017-05-11] MEDS: RIFAXIMIN 550 MG TABLET PO SCH ×2 (09:42→21:21)
[2017-05-12 05:22] LABS: Basophils # 0.1 10*3/uL (0.0-0.2); Basophils % 1.4 % (0.0-0.8); Eosinophils # 1.2 10*3/uL (0.0-0.87); Eosinophils % 24.3 % (0.00-10.9); Hematocrit 29.9 VOL% (42.0-52.0); Hemoglobin 10.6 GM/DL (14.0-18.0); Immature Granulocytes % 0.4 %; Immature Granulocytes Absolute 0.02 #; Lymphocytes # 1.8 10*3/uL (1.4-4.0); Lymphocytes % 36.3 % (21.2-54.2); Mean Corpuscular HGB Conc 35.5 GM/DL (32-36); Mean Corpuscular Hemoglobin 37 PG (27-34); Mean Corpuscular Volume 104.2 FL (87-102); Mean Platelet Volume 11.9 FL (9.6-12.0); Monocytes # 0.7 10*3/uL (0.11-0.8); Monocytes % 13.6 % (1.7-12.7); Neutrophils # 1.2 10*3/uL (1.4-7.4); Platelet Count 89 T/CUMM (130-400); Red Blood Count 2.87 MC/CUMM (3.8-5.5); Red Cell Distribution Width 17.8 % (9.3-17.3); White Blood Count 5.1 T/CUMM (4-12)
[2017-05-12] MEDS: LACTULOSE 20 GM/30 ML UDCUP PO SCH ×5 (05:24→13:36)
[2017-05-12 05:38] LABS: Calcium 8.2 MG/DL (8.5-10.1); Osmolality,Calculated 283.8 MOS/KG (273-304); Potassium 3.8 MMOL/L (3.5-5.1)
[2017-05-12 05:49] LABS: Eosinophils 23 % (0-10); Hypochromasia 1+; Lymphocytes 33 % (20-55); Nucleated Red Blood Cells 1 (0-5); Ovalocytes Slight; Platelet Estimate Decreased; Segmented Neutrophils 32 % (50-85); Total Cells Counted 100
[2017-05-12 05:50] LABS: Giant Platelets Few; Macrocytosis Slight
[2017-05-12] MEDS: cefTRIAXone 1,000 MG in SYRINGE 1 EACH IV SCH (09:14)
[2017-05-12] MEDS: ASPIRIN EC 81 MG TABLET PO SCH (09:49)
[2017-05-12] MEDS: MAGNESIUM OXIDE 400 MG TABLET PO SCH (09:49)
[2017-05-12] MEDS: RIFAXIMIN 550 MG TABLET PO SCH (09:50)
[2017-05-12] MEDS: PANTOPRAZOLE 40 MG TABLET PO SCH (09:50)
[2017-05-12 12:23] VITALS: BP 136/60
== END 2017-05-12 15:29 | disposition hospice, home (50) | DRG 442 ==
LOC: EDUNIT# → EDBD → N.ED 11:31 → SUATTDRO 14:46 → N.EDINP 14:46 → N.2E 16:07
PROVIDERS: ADMIT Internal Medicine Geriatric Medicine; ATTEND Internal Medicine Infectious Disease

== ENCOUNTER 2017-05-17 20:28 | Inpatient (IN) ==
[2017-05-17 21:14] LABS: Basophils # 0.1 10*3/uL (0.0-0.2); Basophils % 0.9 % (0.0-0.8); Eosinophils # 0.9 10*3/uL (0.0-0.87); Eosinophils % 15.5 % (0.00-10.9); Hematocrit 26.1 VOL% (42.0-52.0); Immature Granulocytes % 0.4 %; Immature Granulocytes Absolute 0.02 #; Lymphocytes # 1.7 10*3/uL (1.4-4.0); Lymphocytes % 30.5 % (21.2-54.2); Mean Corpuscular HGB Conc 34.5 GM/DL (32-36); Mean Corpuscular Hemoglobin 36 PG (27-34); Mean Corpuscular Volume 105.2 FL (87-102); Mean Platelet Volume 11.9 FL (9.6-12.0); Monocytes # 0.9 10*3/uL (0.11-0.8); Monocytes % 15.7 % (1.7-12.7); Neutrophils # 2.1 10*3/uL (1.4-7.4); Red Blood Count 2.48 MC/CUMM (3.8-5.5); Red Cell Distribution Width 17.5 % (9.3-17.3); White Blood Count 5.6 T/CUMM (4-12)
[2017-05-17 21:20] LABS: Platelet Count 77 T/CUMM (130-400)
[2017-05-17 21:24] LABS: Albumin 1.6 G/DL (3.4-5.0); Bilirubin,Total 1.1 MG/DL (0.2-1.0); Osmolality,Calculated 286.8 MOS/KG (273-304); Total Protein 6.2 G/DL (6.4-8.3)
[2017-05-17 21:59] LABS: Band Neutrophils 1 % (0-10); Eosinophils 12 % (0-10); Lymphocytes 32 % (20-55); Platelet Estimate Decreased; Segmented Neutrophils 42 % (50-85); Total Cells Counted 100
[2017-05-17 22:00] LABS: Anisocytosis 1+; Macrocytosis 1+
[2017-05-17] MEDS ORDERED: ALBUTEROL/IPRATROPIUM 3 ML NEB RESP TX PRN (22:15)
[2017-05-17] MEDS ORDERED: DEXTROSE 5% NACL 0.9% 1,000 ML IV SCH (22:30)
[2017-05-18] MEDS: PIPERACILLIN/TAZOBACTAM 3,375 MG in SODIUM CHLORIDE 0.9% 100 ML IV SCH ×3 (01:19→17:11)
[2017-05-18] MEDS: ACETAMINOPHEN 500 MG TABLET PO PRN (01:41)
[2017-05-18 06:48] LABS: Basophils % 0.7 % (0.0-0.8); Eosinophils % 17.8 % (0.00-10.9); Hematocrit 25.4 VOL% (42.0-52.0); Immature Granulocytes % 0.2 %; Immature Granulocytes Absolute 0.01 #; Lymphocytes # 1.7 10*3/uL (1.4-4.0); Lymphocytes % 31.2 % (21.2-54.2); Mean Corpuscular HGB Conc 35.4 GM/DL (32-36); Mean Corpuscular Hemoglobin 37 PG (27-34); Mean Corpuscular Volume 103.3 FL (87-102); Mean Platelet Volume 11.6 FL (9.6-12.0); Monocytes # 0.9 10*3/uL (0.11-0.8); Monocytes % 17.1 % (1.7-12.7); Neutrophils # 1.8 10*3/uL (1.4-7.4); Platelet Count 72 T/CUMM (130-400); Red Blood Count 2.46 MC/CUMM (3.8-5.5); Red Cell Distribution Width 17.6 % (9.3-17.3); White Blood Count 5.4 T/CUMM (4-12)
[2017-05-18 07:17] LABS: Albumin 1.5 G/DL (3.4-5.0); Bilirubin,Total 1.4 MG/DL (0.2-1.0); Calcium 7.9 MG/DL (8.5-10.1); Total Protein 5.7 G/DL (6.4-8.3)
[2017-05-18 07:18] LABS: Osmolality,Calculated 288.7 MOS/KG (273-304); Potassium 3.6 MMOL/L (3.5-5.1)
[2017-05-18 07:38] LABS: Eosinophils 19 % (0-10); Hypochromasia 2+; Lymphocytes 28 % (20-55); Microcytosis Slight; Segmented Neutrophils 45 % (50-85); Total Cells Counted 100
[2017-05-18 07:39] LABS: Platelet Estimate Decreased
[2017-05-18] MEDS: MAGNESIUM OXIDE 400 MG TABLET PO SCH ×2 (08:58→20:36)
[2017-05-18] MEDS: FUROSEMIDE 40 MG TABLET PO SCH (08:58)
[2017-05-18] MEDS: LACTULOSE 20 GM/30 ML UDCUP PO SCH ×3 (08:58→20:36)
[2017-05-18] MEDS: SPIRONOLACTONE 25 MG TABLET PO SCH ×2 (08:58→20:36)
[2017-05-18] MEDS: RIFAXIMIN 550 MG TABLET PO SCH ×2 (08:59→20:36)
[2017-05-18] MEDS: PANTOPRAZOLE 40 MG TABLET PO SCH (08:59)
[2017-05-18] MEDS: ONDANSETRON 4 MG/2 ML VIAL IV PRN (18:35)
[2017-05-19] MEDS: PIPERACILLIN/TAZOBACTAM 3,375 MG in SODIUM CHLORIDE 0.9% 100 ML IV SCH ×3 (01:51→17:01)
[2017-05-19] MEDS: FUROSEMIDE 40 MG TABLET PO SCH (09:01)
[2017-05-19] MEDS: SPIRONOLACTONE 25 MG TABLET PO SCH ×2 (09:01→20:40)
[2017-05-19] MEDS: PANTOPRAZOLE 40 MG TABLET PO SCH (09:01)
[2017-05-19] MEDS: LACTULOSE 20 GM/30 ML UDCUP PO SCH ×3 (09:01→20:39)
[2017-05-19] MEDS: RIFAXIMIN 550 MG TABLET PO SCH ×2 (09:01→20:39)
[2017-05-19] MEDS: MAGNESIUM OXIDE 400 MG TABLET PO SCH ×2 (09:01→20:40)
[2017-05-19] MEDS ORDERED: BISACODYL 10 MG SUPP RECTAL PRN (15:58)
[2017-05-20] MEDS: PIPERACILLIN/TAZOBACTAM 3,375 MG in SODIUM CHLORIDE 0.9% 100 ML IV SCH ×2 (01:27→08:57)
[2017-05-20] MEDS: ONDANSETRON 4 MG/2 ML VIAL IV PRN (01:31)
[2017-05-20] MEDS: ACETAMINOPHEN 500 MG TABLET PO PRN (01:38)
[2017-05-20 06:30] LABS: Basophils # 0.1 10*3/uL (0.0-0.2); Basophils % 1.4 % (0.0-0.8); Eosinophils # 1.1 10*3/uL (0.0-0.87); Eosinophils % 21.1 % (0.00-10.9); Hematocrit 28.7 VOL% (42.0-52.0); Hemoglobin 9.8 GM/DL (14.0-18.0); Immature Granulocytes % 0.4 %; Immature Granulocytes Absolute 0.02 #; Lymphocytes # 1.7 10*3/uL (1.4-4.0); Lymphocytes % 33.7 % (21.2-54.2); Mean Corpuscular HGB Conc 34.1 GM/DL (32-36); Mean Corpuscular Hemoglobin 36 PG (27-34); Mean Platelet Volume 11.7 FL (9.6-12.0); Monocytes # 0.6 10*3/uL (0.11-0.8); Monocytes % 11.8 % (1.7-12.7); Neutrophils # 1.6 10*3/uL (1.4-7.4); Neutrophils % 31.6 % (38.7-73.9); Platelet Count 82 T/CUMM (130-400); Red Blood Count 2.76 MC/CUMM (3.8-5.5); Red Cell Distribution Width 17.4 % (9.3-17.3); White Blood Count 5.1 T/CUMM (4-12)
[2017-05-20 06:53] LABS: Eosinophils 26 % (0-10); Giant Platelets Few; Hypochromasia 1+; Lymphocytes 21 % (20-55); Platelet Estimate Decreased; Segmented Neutrophils 37 % (50-85); Total Cells Counted 100
[2017-05-20 06:54] LABS: Microcytosis Slight; Ovalocytes Slight
[2017-05-20 07:08] LABS: Albumin 1.7 G/DL (3.4-5.0); Bilirubin,Total 1.9 MG/DL (0.2-1.0); Calcium 7.8 MG/DL (8.5-10.1); Total Protein 6.6 G/DL (6.4-8.3)
[2017-05-20 07:09] LABS: Potassium 3.7 MMOL/L (3.5-5.1)
[2017-05-20] MEDS: LACTULOSE 20 GM/30 ML UDCUP PO SCH (08:56)
[2017-05-20] MEDS: SPIRONOLACTONE 25 MG TABLET PO SCH (08:56)
[2017-05-20] MEDS: PANTOPRAZOLE 40 MG TABLET PO SCH (08:57)
[2017-05-20] MEDS: RIFAXIMIN 550 MG TABLET PO SCH (08:57)
[2017-05-20] MEDS: MAGNESIUM OXIDE 400 MG TABLET PO SCH (08:57)
[2017-05-20] MEDS: FUROSEMIDE 40 MG TABLET PO SCH (08:57)
[2017-05-20 11:55] VITALS: BP 132/73
== END 2017-05-20 12:36 | disposition hospice, home (50) | DRG 432 ==
LOC: EDUNIT# → EDBD → N.ED 20:28 → N.EDINP 22:08 → N.5E 22:23

== ENCOUNTER 2017-06-04 20:04 | Inpatient (IN) ==
[2017-06-04 20:35] LABS: Eosinophils # 0.7 10*3/uL (0.0-0.87); Hemoglobin 8.6 GM/DL (14.0-18.0); Immature Granulocytes % 0.2 %; Immature Granulocytes Absolute 0.01 #; Lymphocytes # 1.1 10*3/uL (1.4-4.0); Lymphocytes % 27.4 % (21.2-54.2); Mean Corpuscular HGB Conc 35.8 GM/DL (32-36); Mean Corpuscular Hemoglobin 36 PG (27-34); Mean Corpuscular Volume 101.7 FL (87-102); Mean Platelet Volume 11.7 FL (9.6-12.0); Monocytes # 0.8 10*3/uL (0.11-0.8); Monocytes % 19.2 % (1.7-12.7); Neutrophils # 1.5 10*3/uL (1.4-7.4); Neutrophils % 36.2 % (38.7-73.9); Platelet Count 115 T/CUMM (130-400); Red Blood Count 2.36 MC/CUMM (3.8-5.5); Red Cell Distribution Width 17.3 % (9.3-17.3); White Blood Count 4.1 T/CUMM (4-12)
[2017-06-04] MEDS ORDERED: PANTOPRAZOLE 40 MG VIAL IV STA (20:42)
[2017-06-04] MEDS ORDERED: FUROSEMIDE 40 MG/4 ML VIAL IV STA (20:42)
[2017-06-04 20:48] LABS: Albumin 1.7 G/DL (3.4-5.0); Bilirubin,Total 1.1 MG/DL (0.2-1.0); Calcium 7.9 MG/DL (8.5-10.1); Lactic Acid 1.4 MMOL/L (0.4-2.0); Osmolality,Calculated 281.1 MOS/KG (273-304); Potassium 4.7 MMOL/L (3.5-5.1); Total Protein 6.5 G/DL (6.4-8.3)
[2017-06-04] MEDS ORDERED: FUROSEMIDE 40 MG/4 ML VIAL ONE (21:00)
[2017-06-04] MEDS ORDERED: FUROSEMIDE 20 MG/2 ML VIAL ONE (21:00)
[2017-06-04] MEDS ORDERED: PANTOPRAZOLE 40 MG VIAL IV ONE (21:00)
[2017-06-04 21:04] LABS: Troponin I Only 0.022 NG/ML (0.00-0.045)
[2017-06-04 21:10] LABS: Eosinophils 16 % (0-10); Hypochromasia 2+; Lymphocytes 27 % (20-55); Ovalocytes 1+; Platelet Estimate Decreased; Segmented Neutrophils 38 % (50-85); Total Cells Counted 100
[2017-06-04 21:11] LABS: Anisocytosis 1+; Macrocytosis 1+; Target Cells Few
[2017-06-04] MEDS ORDERED: ONDANSETRON 4 MG/2 ML VIAL IV PRN (23:03)
[2017-06-05] MEDS ORDERED: PROMETHAZINE 25 MG TABLET PO PRN (00:08)
[2017-06-05 07:14] LABS: Basophils % 0.9 % (0.0-0.8); Eosinophils # 0.9 10*3/uL (0.0-0.87); Eosinophils % 19.7 % (0.00-10.9); Immature Granulocytes % 0.4 %; Immature Granulocytes Absolute 0.02 #; Lymphocytes # 1.8 10*3/uL (1.4-4.0); Lymphocytes % 38.5 % (21.2-54.2); Mean Corpuscular HGB Conc 35.9 GM/DL (32-36); Mean Corpuscular Hemoglobin 36 PG (27-34); Mean Corpuscular Volume 100.5 FL (87-102); Mean Platelet Volume 11.7 FL (9.6-12.0); Monocytes # 0.8 10*3/uL (0.11-0.8); Monocytes % 17.1 % (1.7-12.7); Neutrophils # 1.1 10*3/uL (1.4-7.4); Neutrophils % 23.4 % (38.7-73.9); Platelet Count 102 T/CUMM (130-400); Red Blood Count 2.19 MC/CUMM (3.8-5.5); Red Cell Distribution Width 17.1 % (9.3-17.3); White Blood Count 4.6 T/CUMM (4-12)
[2017-06-05 07:15] LABS: Hemoglobin 7.9 GM/DL (14.0-18.0)
[2017-06-05 07:28] LABS: Albumin 1.4 G/DL (3.4-5.0); Bilirubin,Total 1.3 MG/DL (0.2-1.0); Calcium 7.9 MG/DL (8.5-10.1); Osmolality,Calculated 283.8 MOS/KG (273-304); Potassium 3.7 MMOL/L (3.5-5.1); Total Protein 5.5 G/DL (6.4-8.3)
[2017-06-05 07:36] LABS: Eosinophils 22 % (0-10); Hypochromasia 1+; Lymphocytes 25 % (20-55); Platelet Estimate Decreased; Segmented Neutrophils 44 % (50-85); Smudge Cells Few; Total Cells Counted 100
[2017-06-05 07:37] LABS: Giant Platelets Few; Microcytosis Slight; Ovalocytes Slight
[2017-06-05] MEDS: LACTULOSE 20 GM/30 ML UDCUP PO SCH ×3 (08:47→21:15)
[2017-06-05] MEDS: SPIRONOLACTONE 25 MG TABLET PO SCH ×2 (08:47→21:16)
[2017-06-05] MEDS: PANTOPRAZOLE 40 MG TABLET PO SCH (08:47)
[2017-06-05] MEDS: PROPRANOLOL 10 MG TABLET PO SCH (21:19)
[2017-06-06 05:11] LABS: Hematocrit 22.8 VOL% (42.0-52.0); Hemoglobin 7.9 GM/DL (14.0-18.0)
[2017-06-06] MEDS: PROPRANOLOL 10 MG TABLET PO SCH ×2 (08:38→21:14)
[2017-06-06] MEDS: PANTOPRAZOLE 40 MG TABLET PO SCH (08:38)
[2017-06-06] MEDS: SPIRONOLACTONE 25 MG TABLET PO SCH ×2 (08:38→21:19)
[2017-06-06] MEDS: LACTULOSE 20 GM/30 ML UDCUP PO SCH ×3 (08:39→21:19)
[2017-06-06] MEDS ORDERED: FUROSEMIDE 40 MG/4 ML VIAL IV ONE (11:31)
[2017-06-06 14:03] LABS: INR 1.3; PT Patient Result 13.6 SECS; Partial Thromboplastin Time 34.5 SECS (0-40)
[2017-06-06] MEDS: ALBUMIN 25% 12.5 GM in PREMIX 1 EACH IV SCH ×2 (15:53→21:19)
[2017-06-06 16:16] LABS: RBC,Peritoneal Fluid 140 T/CUMM
[2017-06-06 19:27] LABS: Neutrophils,Peritoneal Fluid 8 %
[2017-06-07] MEDS: ALBUMIN 25% 12.5 GM in PREMIX 1 EACH IV SCH (04:38)
[2017-06-07 05:07] LABS: Basophils % 0.9 % (0.0-0.8); Eosinophils # 0.8 10*3/uL (0.0-0.87); Eosinophils % 16.7 % (0.00-10.9); Hematocrit 22.7 VOL% (42.0-52.0); Hemoglobin 7.7 GM/DL (14.0-18.0); Immature Granulocytes % 0.2 %; Immature Granulocytes Absolute 0.01 #; Lymphocytes # 1.8 10*3/uL (1.4-4.0); Lymphocytes % 40.4 % (21.2-54.2); Mean Corpuscular HGB Conc 33.9 GM/DL (32-36); Mean Corpuscular Hemoglobin 36 PG (27-34); Mean Corpuscular Volume 104.6 FL (87-102); Monocytes # 0.8 10*3/uL (0.11-0.8); Monocytes % 18.7 % (1.7-12.7); Neutrophils % 23.1 % (38.7-73.9); Platelet Count 95 T/CUMM (130-400); Red Blood Count 2.17 MC/CUMM (3.8-5.5); Red Cell Distribution Width 16.9 % (9.3-17.3); White Blood Count 4.5 T/CUMM (4-12)
[2017-06-07 05:34] LABS: Calcium 7.6 MG/DL (8.5-10.1); Potassium 3.8 MMOL/L (3.5-5.1)
[2017-06-07 07:03] LABS: Band Neutrophils 4 % (0-10); Eosinophils 7 % (0-10); Lymphocytes 51 % (20-55); Myelocytes 2 %; Segmented Neutrophils 31 % (50-85); Total Cells Counted 100
[2017-06-07 07:04] LABS: Anisocytosis 1+; Hypochromasia 1+
[2017-06-07 07:05] LABS: Platelet Estimate Decreased; Target Cells 1+
[2017-06-07 07:45] VITALS: BP 131/62
[2017-06-07] MEDS: PROPRANOLOL 10 MG TABLET PO SCH (08:08)
[2017-06-07] MEDS ORDERED: MAGNESIUM SULF RIDER 2 GM in PREMIX 1 EACH IV PRN (08:40)
[2017-06-07] MEDS ORDERED: MAGNESIUM SULF RIDER 4 GM in PREMIX 1 EACH IV PRN (08:40)
[2017-06-07] MEDS ORDERED: MAGNESIUM SULF RIDER 50 ML IV ONE (08:47)
[2017-06-07] MEDS: LACTULOSE 20 GM/30 ML UDCUP PO SCH (08:49)
[2017-06-07] MEDS: PANTOPRAZOLE 40 MG TABLET PO SCH (08:49)
[2017-06-07] MEDS: SPIRONOLACTONE 25 MG TABLET PO SCH (08:49)
[2017-06-08] MEDS ORDERED: ERGOCALCIFEROL 50,000 UNIT CAPSULE PO SCH (09:00)
== END 2017-06-07 10:44 | disposition hospice, home (50) | DRG 433 ==
LOC: EDUNIT# → N.ED 20:04 → N.EDINP 23:03 → N.TELES 23:17
PROVIDERS: ADMIT Internal Medicine; ATTEND Internal Medicine

== ENCOUNTER 2017-06-09 09:16 | Inpatient (IN) ==
[2017-06-09] MEDS ORDERED: SODIUM CHLORIDE 0.9% 1,000 ML IV SCH (13:00)
[2017-06-09] MEDS ORDERED: ONDANSETRON 4 MG/2 ML VIAL IV PRN (13:00)
[2017-06-09] MEDS ORDERED: ALBUTEROL 2.5 MG/3 ML NEB RESP TX PRN (13:00)
[2017-06-09] MEDS ORDERED: ALBUTEROL/IPRATROPIUM 3 ML NEB RESP TX PRN (13:04)
[2017-06-09] MEDS ORDERED: THIAMINE INJ 100 MG, FOLIC ACID INJ 1 MG, MULTIVITAMIN INJ 10 ML in SODIUM CHLORIDE 0.9... IV SCH (13:30)
[2017-06-09 14:55] LABS: ABG Base Excess 0.6 MMOL/L (-2.5-2.5); ABG HCO3 24.9 MMOL/L (20-26); ABG Oxygen Saturation 95.8 % (95-100); ABG PCO2 38.4 MM HG (35-48); ABG PO2 79.9 MM HG (80-95); ABG TCO2 23.1 MMOL/L (23-27)
[2017-06-09] MEDS ORDERED: LACTULOSE 20 GM/30 ML UDCUP PO SCH (15:00)
[2017-06-09 15:15] LABS: Basophils % 0.9 % (0.0-0.8); Eosinophils # 0.7 10*3/uL (0.0-0.87); Eosinophils % 15.8 % (0.00-10.9); Hematocrit 25.2 VOL% (42.0-52.0); Hemoglobin 8.4 GM/DL (14.0-18.0); Lymphocytes # 1.9 10*3/uL (1.4-4.0); Lymphocytes % 44.5 % (21.2-54.2); Mean Corpuscular HGB Conc 33.3 GM/DL (32-36); Mean Corpuscular Hemoglobin 35 PG (27-34); Mean Corpuscular Volume 104.6 FL (87-102); Mean Platelet Volume 12.6 FL (9.6-12.0); Monocytes # 0.6 10*3/uL (0.11-0.8); Monocytes % 14.6 % (1.7-12.7); Neutrophils % 24.2 % (38.7-73.9); Red Blood Count 2.41 MC/CUMM (3.8-5.5); White Blood Count 4.3 T/CUMM (4-12)
[2017-06-09] MEDS: PANTOPRAZOLE 40 MG VIAL IV SCH (15:15)
[2017-06-09 15:18] LABS: Platelet Count 75 T/CUMM (130-400)
[2017-06-09 15:34] LABS: Apearance,Urine CLEAR (Clear); Bilirubin,Urine Negative (Negative); Blood, Urine Negative (Negative); Glucose,Urine (UA) Negative (Negative); Ketones,Urine Negative (Negative); Mucus,Urine Occasional /LPF (Occasional); Nitrite,Urine Negative (Negative); Protein,Urine Negative; RBC,Urine 2 /HPF (0-4); Urine Color Yellow (Yellow); Urine Specific Gravity 1.015 (1.001-1.035); WBC,Urine 1 /HPF (0-6)
[2017-06-09] MEDS: MULTIVITAMIN IV SCH (15:40)
[2017-06-09] MEDS: THIAMINE IV SCH (15:40)
[2017-06-09] MEDS: [UNRECOGNIZED DRUG - OTHER] IV SCH (15:40)
[2017-06-09] MEDS: FOLIC ACID IV SCH (15:40)
[2017-06-09 15:49] LABS: Calcium 7.7 MG/DL (8.5-10.1)
[2017-06-09] MEDS: LACTULOSE 160 GM/240 ML BOTTLE RECTAL SCH (15:55)
[2017-06-09 16:07] LABS: Albumin 1.9 G/DL (3.4-5.0); Bilirubin,Direct 0.62 MG/DL (0.0-0.20); Bilirubin,Indirect 0.6 MG/DL (0.0-1.0); Bilirubin,Total 1.2 MG/DL (0.2-1.0); Total Protein 6.1 G/DL (6.4-8.3)
[2017-06-09 17:53] LABS: Anisocytosis Slight; Hypochromasia 1+; Platelet Estimate Decreased
[2017-06-09 17:54] LABS: Macrocytosis Slight; Ovalocytes Slight
[2017-06-09] MEDS: MAGNESIUM OXIDE 400 MG TABLET PO SCH (20:42)
[2017-06-09] MEDS: SPIRONOLACTONE 25 MG TABLET PO SCH (20:42)
[2017-06-09] MEDS: RIFAXIMIN 550 MG TABLET PO SCH (20:42)
[2017-06-10] MEDS: LACTULOSE 160 GM/240 ML BOTTLE RECTAL SCH ×4 (00:47→21:45)
[2017-06-10] MEDS: LORazepam 2 MG/1 ML VIAL IV SCH ×2 (00:48→05:54)
[2017-06-10] MEDS: [UNRECOGNIZED DRUG - OTHER] IV SCH (03:13)
[2017-06-10] MEDS: FOLIC ACID IV SCH (03:13)
[2017-06-10] MEDS: THIAMINE IV SCH (03:13)
[2017-06-10] MEDS: MULTIVITAMIN IV SCH (03:13)
[2017-06-10 04:45] LABS: Basophils # 0.1 10*3/uL (0.0-0.2); Basophils % 0.3 % (0.0-0.8); Eosinophils % 0.3 % (0.00-10.9); Hematocrit 27.8 VOL% (42.0-52.0); Hemoglobin 9.5 GM/DL (14.0-18.0); Immature Granulocytes % 0.5 %; Immature Granulocytes Absolute 0.07 #; Lymphocytes # 2.9 10*3/uL (1.4-4.0); Lymphocytes % 18.8 % (21.2-54.2); Mean Corpuscular HGB Conc 34.2 GM/DL (32-36); Mean Corpuscular Hemoglobin 36 PG (27-34); Mean Corpuscular Volume 105.3 FL (87-102); Mean Platelet Volume 11.9 FL (9.6-12.0); Monocytes # 1.7 10*3/uL (0.11-0.8); Monocytes % 11.2 % (1.7-12.7); Neutrophils # 10.7 10*3/uL (1.4-7.4); Neutrophils % 68.9 % (38.7-73.9); Platelet Count 112 T/CUMM (130-400); Red Blood Count 2.64 MC/CUMM (3.8-5.5); Red Cell Distribution Width 16.8 % (9.3-17.3); White Blood Count 15.5 T/CUMM (4-12)
[2017-06-10 05:08] LABS: Calcium 7.9 MG/DL (8.5-10.1); Osmolality,Calculated 286.8 MOS/KG (273-304); Potassium 3.9 MMOL/L (3.5-5.1)
[2017-06-10] MEDS: SPIRONOLACTONE 25 MG TABLET PO SCH ×2 (08:28→21:45)
[2017-06-10] MEDS: MAGNESIUM OXIDE 400 MG TABLET PO SCH ×2 (08:28→21:45)
[2017-06-10] MEDS: RIFAXIMIN 550 MG TABLET PO SCH ×2 (08:28→21:46)
[2017-06-10] MEDS: LORazepam 2 MG/1 ML VIAL IV PRN ×4 (10:45→22:39)
[2017-06-10] MEDS: LACTATED RINGERS 1,000 ML IV SCH (13:07)
[2017-06-10] MEDS: cefTRIAXone 1,000 MG in SYRINGE 1 EACH IV SCH (13:07)
[2017-06-10] MEDS: PANTOPRAZOLE 40 MG VIAL IV SCH (14:36)
[2017-06-11] MEDS: LACTATED RINGERS 1,000 ML IV SCH (02:35)
[2017-06-11] MEDS: LACTULOSE 160 GM/240 ML BOTTLE RECTAL SCH ×5 (03:54→21:08)
[2017-06-11 05:27] LABS: Basophils % 0.3 % (0.0-0.8); Eosinophils # 0.4 10*3/uL (0.0-0.87); Eosinophils % 4.3 % (0.00-10.9); Hematocrit 23.8 VOL% (42.0-52.0); Hemoglobin 8.1 GM/DL (14.0-18.0); Immature Granulocytes % 0.4 %; Immature Granulocytes Absolute 0.04 #; Lymphocytes # 1.9 10*3/uL (1.4-4.0); Lymphocytes % 20.8 % (21.2-54.2); Mean Corpuscular Hemoglobin 35 PG (27-34); Mean Corpuscular Volume 103.9 FL (87-102); Monocytes # 1.2 10*3/uL (0.11-0.8); Monocytes % 13.8 % (1.7-12.7); Neutrophils # 5.4 10*3/uL (1.4-7.4); Neutrophils % 60.4 % (38.7-73.9); Platelet Count 88 T/CUMM (130-400); Red Blood Count 2.29 MC/CUMM (3.8-5.5); Red Cell Distribution Width 16.9 % (9.3-17.3)
[2017-06-11] MEDS: LORazepam 2 MG/1 ML VIAL IV PRN ×4 (05:34→20:45)
[2017-06-11 05:54] LABS: Band Neutrophils 1 % (0-10); Eosinophils 5 % (0-10); Giant Platelets Few; Hypochromasia 1+; Lymphocytes 13 % (20-55); Ovalocytes Slight; Platelet Estimate Decreased; Segmented Neutrophils 75 % (50-85); Total Cells Counted 100
[2017-06-11 06:07] LABS: Albumin 1.7 G/DL (3.4-5.0); Bilirubin,Total 2.3 MG/DL (0.2-1.0); Calcium 7.5 MG/DL (8.5-10.1); Osmolality,Calculated 291.4 MOS/KG (273-304); Potassium 3.9 MMOL/L (3.5-5.1); Total Protein 5.9 G/DL (6.4-8.3)
[2017-06-11] MEDS: AZITHROMYCIN INJ 500 MG in SODIUM CHLORIDE 0.9% 250 ML IV SCH (09:26)
[2017-06-11] MEDS: DEXTROSE 5% NACL 0.45% 1,000 ML IV SCH (09:27)
[2017-06-11] MEDS: SPIRONOLACTONE 25 MG TABLET PO SCH ×2 (09:40→20:44)
[2017-06-11] MEDS: RIFAXIMIN 550 MG TABLET PO SCH ×2 (09:40→20:44)
[2017-06-11] MEDS: MAGNESIUM OXIDE 400 MG TABLET PO SCH ×2 (09:40→20:44)
[2017-06-11] MEDS: VANCOMYCIN INJ 1,500 MG in SODIUM CHLORIDE 0.9% 500 ML IV SCH ×2 (10:42→21:29)
[2017-06-11] MEDS: PANTOPRAZOLE 40 MG VIAL IV SCH (13:39)
[2017-06-11] MEDS: cefTRIAXone 1,000 MG in SYRINGE 1 EACH IV SCH (13:42)
[2017-06-12] MEDS: LORazepam 2 MG/1 ML VIAL IV PRN (00:48)
[2017-06-12] MEDS: LACTULOSE 160 GM/240 ML BOTTLE RECTAL SCH ×4 (03:57→21:03)
[2017-06-12 05:12] LABS: Basophils % 0.6 % (0.0-0.8); Eosinophils # 0.6 10*3/uL (0.0-0.87); Hematocrit 25.3 VOL% (42.0-52.0); Hemoglobin 8.4 GM/DL (14.0-18.0); Immature Granulocytes % 0.3 %; Immature Granulocytes Absolute 0.02 #; Lymphocytes # 1.3 10*3/uL (1.4-4.0); Lymphocytes % 21.4 % (21.2-54.2); Mean Corpuscular HGB Conc 33.2 GM/DL (32-36); Mean Corpuscular Hemoglobin 35 PG (27-34); Mean Corpuscular Volume 105.9 FL (87-102); Mean Platelet Volume 12.5 FL (9.6-12.0); Monocytes # 1.2 10*3/uL (0.11-0.8); Monocytes % 19.7 % (1.7-12.7); Platelet Count 88 T/CUMM (130-400); Red Blood Count 2.39 MC/CUMM (3.8-5.5); Red Cell Distribution Width 16.7 % (9.3-17.3); White Blood Count 6.2 T/CUMM (4-12)
[2017-06-12 05:38] LABS: Eosinophils 14 % (0-10); Giant Platelets Few; Hypochromasia 1+; Lymphocytes 9 % (20-55); Ovalocytes Slight; Platelet Estimate Decreased; Segmented Neutrophils 62 % (50-85); Total Cells Counted 100
[2017-06-12 05:48] LABS: Albumin 1.7 G/DL (3.4-5.0); Bilirubin,Total 1.8 MG/DL (0.2-1.0); Calcium 7.6 MG/DL (8.5-10.1); Osmolality,Calculated 292.4 MOS/KG (273-304); Potassium 3.9 MMOL/L (3.5-5.1); Total Protein 6.2 G/DL (6.4-8.3)
[2017-06-12] MEDS: DEXTROSE 5% NACL 0.45% 1,000 ML IV SCH (07:10)
[2017-06-12] MEDS: AZITHROMYCIN INJ 500 MG in SODIUM CHLORIDE 0.9% 250 ML IV SCH (09:01)
[2017-06-12] MEDS: SPIRONOLACTONE 25 MG TABLET PO SCH ×2 (09:02→21:04)
[2017-06-12] MEDS: MAGNESIUM OXIDE 400 MG TABLET PO SCH ×2 (09:02→21:04)
[2017-06-12] MEDS: RIFAXIMIN 550 MG TABLET PO SCH ×2 (09:02→21:04)
[2017-06-12] MEDS ORDERED: TUBERCULIN SKIN TEST 0.1 ML SYRINGE INTRADERM ONE (10:10)
[2017-06-12] MEDS: VANCOMYCIN INJ 1,500 MG in SODIUM CHLORIDE 0.9% 500 ML IV SCH ×2 (10:24→22:35)
[2017-06-12] MEDS: PANTOPRAZOLE 40 MG VIAL IV SCH (12:03)
[2017-06-12] MEDS: cefTRIAXone 1,000 MG in SYRINGE 1 EACH IV SCH (12:03)
[2017-06-12] MEDS ORDERED: FUROSEMIDE 40 MG/4 ML VIAL IV ONE (14:52)
[2017-06-13] MEDS: LACTULOSE 160 GM/240 ML BOTTLE RECTAL SCH ×4 (04:00→22:05)
[2017-06-13 06:52] LABS: Basophils % 0.6 % (0.0-0.8); Eosinophils # 0.4 10*3/uL (0.0-0.87); Eosinophils % 6.7 % (0.00-10.9); Hematocrit 26.1 VOL% (42.0-52.0); Hemoglobin 8.9 GM/DL (14.0-18.0); Immature Granulocytes % 0.4 %; Immature Granulocytes Absolute 0.02 #; Lymphocytes # 1.4 10*3/uL (1.4-4.0); Lymphocytes % 26.5 % (21.2-54.2); Mean Corpuscular HGB Conc 34.1 GM/DL (32-36); Mean Corpuscular Hemoglobin 35 PG (27-34); Mean Corpuscular Volume 103.6 FL (87-102); Mean Platelet Volume 12.2 FL (9.6-12.0); Monocytes % 18.5 % (1.7-12.7); Neutrophils # 2.5 10*3/uL (1.4-7.4); Neutrophils % 47.3 % (38.7-73.9); Platelet Count 92 T/CUMM (130-400); Red Blood Count 2.52 MC/CUMM (3.8-5.5); Red Cell Distribution Width 16.5 % (9.3-17.3); White Blood Count 5.4 T/CUMM (4-12)
[2017-06-13 07:18] LABS: Eosinophils 6 % (0-10); Lymphocytes 24 % (20-55); Segmented Neutrophils 61 % (50-85); Total Cells Counted 100
[2017-06-13 07:19] LABS: Hypochromasia 1+; Macrocytosis 1+
[2017-06-13 07:20] LABS: Platelet Estimate Decreased; Polychromasia Slight; Target Cells Few
[2017-06-13 07:24] LABS: Calcium 7.7 MG/DL (8.5-10.1); Osmolality,Calculated 290.4 MOS/KG (273-304); Potassium 3.8 MMOL/L (3.5-5.1)
[2017-06-13] MEDS: RIFAXIMIN 550 MG TABLET PO SCH ×2 (08:49→21:26)
[2017-06-13] MEDS: SPIRONOLACTONE 25 MG TABLET PO SCH ×2 (08:49→21:26)
[2017-06-13] MEDS: MAGNESIUM OXIDE 400 MG TABLET PO SCH ×2 (08:49→21:26)
[2017-06-13] MEDS ORDERED: LORazepam 2 MG/1 ML VIAL IV ONE (09:14)
[2017-06-13] MEDS: AZITHROMYCIN INJ 500 MG in SODIUM CHLORIDE 0.9% 250 ML IV SCH (09:24)
[2017-06-13] MEDS: MULTIVITAMIN INJ 10 ML in DEXTROSE 5% 1,000 ML IV SCH (11:09)
[2017-06-13] MEDS: FOLIC ACID INJ 1 MG in SYRINGE 1 EACH IV SCH (11:10)
[2017-06-13] MEDS: THIAMINE 200 MG/2 ML VIAL IV SCH (11:10)
[2017-06-13] MEDS: PIPERACILLIN/TAZOBACTAM 3,375 MG in SODIUM CHLORIDE 0.9% 100 ML IV SCH ×2 (11:12→16:58)
[2017-06-13] MEDS: cefTRIAXone 1,000 MG in SYRINGE 1 EACH IV SCH (11:15)
[2017-06-13] MEDS: PANTOPRAZOLE 40 MG VIAL IV SCH (14:09)
[2017-06-14] MEDS: PIPERACILLIN/TAZOBACTAM 3,375 MG in SODIUM CHLORIDE 0.9% 100 ML IV SCH ×3 (01:11→16:35)
[2017-06-14] MEDS: LACTULOSE 160 GM/240 ML BOTTLE RECTAL SCH ×4 (04:00→22:46)
[2017-06-14] MEDS: PANTOPRAZOLE 40 MG VIAL IV SCH ×2 (08:29→12:17)
[2017-06-14] MEDS: FOLIC ACID INJ 1 MG in SYRINGE 1 EACH IV SCH (08:29)
[2017-06-14] MEDS: THIAMINE 200 MG/2 ML VIAL IV SCH (08:30)
[2017-06-14] MEDS: RIFAXIMIN 550 MG TABLET PO SCH ×2 (08:31→20:40)
[2017-06-14] MEDS: MAGNESIUM OXIDE 400 MG TABLET PO SCH ×2 (08:34→20:40)
[2017-06-14] MEDS: SPIRONOLACTONE 25 MG TABLET PO SCH ×2 (08:35→20:40)
[2017-06-14] MEDS: MULTIVITAMIN INJ 10 ML in DEXTROSE 5% 1,000 ML IV SCH ×2 (09:13→16:36)
[2017-06-14 10:27] LABS: Basophils % 0.9 % (0.0-0.8); Eosinophils # 0.3 10*3/uL (0.0-0.87); Eosinophils % 7.7 % (0.00-10.9); Hematocrit 24.4 VOL% (42.0-52.0); Hemoglobin 8.2 GM/DL (14.0-18.0); Immature Granulocytes % 0.5 %; Immature Granulocytes Absolute 0.02 #; Lymphocytes # 1.1 10*3/uL (1.4-4.0); Lymphocytes % 24.8 % (21.2-54.2); Mean Corpuscular HGB Conc 33.6 GM/DL (32-36); Mean Corpuscular Hemoglobin 35 PG (27-34); Mean Corpuscular Volume 104.7 FL (87-102); Mean Platelet Volume 12.1 FL (9.6-12.0); Monocytes # 0.8 10*3/uL (0.11-0.8); Monocytes % 18.9 % (1.7-12.7); Neutrophils % 47.2 % (38.7-73.9); Red Blood Count 2.33 MC/CUMM (3.8-5.5); Red Cell Distribution Width 16.7 % (9.3-17.3); White Blood Count 4.3 T/CUMM (4-12)
[2017-06-14 10:30] LABS: Platelet Count 90 T/CUMM (130-400)
[2017-06-14 10:42] LABS: Eosinophils 6 % (0-10); Giant Platelets Few; Hypochromasia 1+; Lymphocytes 28 % (20-55); Macrocytosis Slight; Ovalocytes Slight; Platelet Estimate Decreased; Segmented Neutrophils 51 % (50-85); Total Cells Counted 100
[2017-06-14 10:47] LABS: Calcium 7.4 MG/DL (8.5-10.1); Osmolality,Calculated 290.6 MOS/KG (273-304); Potassium 3.6 MMOL/L (3.5-5.1)
[2017-06-14] MEDS: cefTRIAXone 1,000 MG in SYRINGE 1 EACH IV SCH (11:31)
[2017-06-15] MEDS: PIPERACILLIN/TAZOBACTAM 3,375 MG in SODIUM CHLORIDE 0.9% 100 ML IV SCH ×3 (00:58→18:09)
[2017-06-15] MEDS: LACTULOSE 160 GM/240 ML BOTTLE RECTAL SCH ×4 (04:00→20:46)
[2017-06-15 07:06] LABS: Basophils % 0.8 % (0.0-0.8); Eosinophils # 0.5 10*3/uL (0.0-0.87); Eosinophils % 10.6 % (0.00-10.9); Hematocrit 26.2 VOL% (42.0-52.0); Hemoglobin 8.9 GM/DL (14.0-18.0); Immature Granulocytes % 0.2 %; Immature Granulocytes Absolute 0.01 #; Lymphocytes # 1.6 10*3/uL (1.4-4.0); Mean Corpuscular Hemoglobin 36 PG (27-34); Mean Corpuscular Volume 104.4 FL (87-102); Monocytes # 1.1 10*3/uL (0.11-0.8); Monocytes % 21.6 % (1.7-12.7); Neutrophils # 1.7 10*3/uL (1.4-7.4); Neutrophils % 33.8 % (38.7-73.9); Platelet Count 85 T/CUMM (130-400); Red Blood Count 2.51 MC/CUMM (3.8-5.5); Red Cell Distribution Width 16.7 % (9.3-17.3); White Blood Count 4.9 T/CUMM (4-12)
[2017-06-15 07:08] LABS: Calcium 7.5 MG/DL (8.5-10.1); Osmolality,Calculated 288.6 MOS/KG (273-304); Potassium 3.5 MMOL/L (3.5-5.1)
[2017-06-15 08:05] LABS: Eosinophils 9 % (0-10); Hypochromasia 1+; Lymphocytes 29 % (20-55); Ovalocytes Slight; Platelet Estimate Decreased; Segmented Neutrophils 41 % (50-85); Total Cells Counted 100
[2017-06-15 08:06] LABS: Giant Platelets Few; Macrocytosis Slight; Target Cells Few
[2017-06-15] MEDS ORDERED: ERGOCALCIFEROL 50,000 UNIT CAPSULE PO SCH (09:00)
[2017-06-15] MEDS: THIAMINE 200 MG/2 ML VIAL IV SCH (10:33)
[2017-06-15] MEDS: SPIRONOLACTONE 25 MG TABLET PO SCH ×2 (10:35→20:46)
[2017-06-15] MEDS: FOLIC ACID INJ 1 MG in SYRINGE 1 EACH IV SCH (10:36)
[2017-06-15] MEDS: MAGNESIUM OXIDE 400 MG TABLET PO SCH ×2 (10:37→20:46)
[2017-06-15] MEDS: RIFAXIMIN 550 MG TABLET PO SCH ×2 (10:39→20:46)
[2017-06-15] MEDS: MULTIVITAMIN INJ 10 ML in DEXTROSE 5% 1,000 ML IV SCH (12:49)
[2017-06-15] MEDS: PANTOPRAZOLE 40 MG VIAL IV SCH (18:08)
[2017-06-16] MEDS: LACTULOSE 160 GM/240 ML BOTTLE RECTAL SCH ×2 (01:55→10:54)
[2017-06-16] MEDS: PIPERACILLIN/TAZOBACTAM 3,375 MG in SODIUM CHLORIDE 0.9% 100 ML IV SCH ×3 (02:19→17:50)
[2017-06-16 06:24] LABS: Basophils # 0.1 10*3/uL (0.0-0.2); Eosinophils # 0.4 10*3/uL (0.0-0.87); Eosinophils % 8.7 % (0.00-10.9); Hemoglobin 8.4 GM/DL (14.0-18.0); Immature Granulocytes % 0.4 %; Immature Granulocytes Absolute 0.02 #; Lymphocytes # 1.5 10*3/uL (1.4-4.0); Lymphocytes % 30.8 % (21.2-54.2); Mean Corpuscular HGB Conc 33.6 GM/DL (32-36); Mean Corpuscular Hemoglobin 35 PG (27-34); Mean Corpuscular Volume 104.2 FL (87-102); Monocytes # 0.9 10*3/uL (0.11-0.8); Monocytes % 17.4 % (1.7-12.7); Neutrophils # 2.1 10*3/uL (1.4-7.4); Neutrophils % 41.7 % (38.7-73.9); Red Cell Distribution Width 16.5 % (9.3-17.3); White Blood Count 4.9 T/CUMM (4-12)
[2017-06-16 06:27] LABS: Platelet Count 85 T/CUMM (130-400)
[2017-06-16 07:00] LABS: Band Neutrophils 1 % (0-10); Calcium 7.6 MG/DL (8.5-10.1); Eosinophils 10 % (0-10); Hypochromasia 1+; Lymphocytes 24 % (20-55); Macrocytosis 1+; Osmolality,Calculated 287.6 MOS/KG (273-304); Potassium 3.5 MMOL/L (3.5-5.1); Segmented Neutrophils 59 % (50-85); Total Cells Counted 100
[2017-06-16 07:01] LABS: Ovalocytes Slight; Platelet Estimate Decreased; Target Cells Slight
[2017-06-16] MEDS: THIAMINE 200 MG/2 ML VIAL IV SCH (09:33)
[2017-06-16] MEDS: FOLIC ACID INJ 1 MG in SYRINGE 1 EACH IV SCH (09:35)
[2017-06-16] MEDS: SPIRONOLACTONE 25 MG TABLET PO SCH ×2 (09:36→20:10)
[2017-06-16] MEDS: MAGNESIUM OXIDE 400 MG TABLET PO SCH ×2 (09:36→20:10)
[2017-06-16] MEDS: RIFAXIMIN 550 MG TABLET PO SCH ×2 (09:36→20:10)
[2017-06-16] MEDS: MULTIVITAMIN INJ 10 ML in DEXTROSE 5% 1,000 ML IV SCH (10:53)
[2017-06-16] MEDS: LACTULOSE 20 GM/30 ML UDCUP PO SCH ×2 (15:19→20:10)
[2017-06-16] MEDS ORDERED: THIAMINE 200 MG/2 ML VIAL IV SCH (16:37)
[2017-06-16] MEDS: PANTOPRAZOLE 40 MG VIAL IV SCH (17:50)
[2017-06-17] MEDS: PIPERACILLIN/TAZOBACTAM 3,375 MG in SODIUM CHLORIDE 0.9% 100 ML IV SCH ×2 (00:30→08:50)
[2017-06-17 07:46] LABS: Basophils % 0.7 % (0.0-0.8); Eosinophils # 0.7 10*3/uL (0.0-0.87); Eosinophils % 12.5 % (0.00-10.9); Hemoglobin 8.9 GM/DL (14.0-18.0); Immature Granulocytes % 0.4 %; Immature Granulocytes Absolute 0.02 #; Lymphocytes # 1.8 10*3/uL (1.4-4.0); Lymphocytes % 32.8 % (21.2-54.2); Mean Corpuscular HGB Conc 34.2 GM/DL (32-36); Mean Corpuscular Hemoglobin 35 PG (27-34); Mean Corpuscular Volume 102.4 FL (87-102); Monocytes % 18.7 % (1.7-12.7); Neutrophils # 1.9 10*3/uL (1.4-7.4); Neutrophils % 34.9 % (38.7-73.9); Platelet Count 87 T/CUMM (130-400); Red Blood Count 2.54 MC/CUMM (3.8-5.5); Red Cell Distribution Width 16.5 % (9.3-17.3); White Blood Count 5.5 T/CUMM (4-12)
[2017-06-17 08:05] LABS: Calcium 7.8 MG/DL (8.5-10.1); Potassium 3.6 MMOL/L (3.5-5.1)
[2017-06-17 08:07] LABS: Band Neutrophils 2 % (0-10); Eosinophils 14 % (0-10); Hypochromasia 1+; Lymphocytes 34 % (20-55); Macrocytosis 1+; Segmented Neutrophils 36 % (50-85); Total Cells Counted 100
[2017-06-17 08:08] LABS: Platelet Estimate Decreased; Target Cells Slight
[2017-06-17] MEDS: SPIRONOLACTONE 25 MG TABLET PO SCH (08:51)
[2017-06-17] MEDS: RIFAXIMIN 550 MG TABLET PO SCH (08:51)
[2017-06-17] MEDS: MAGNESIUM OXIDE 400 MG TABLET PO SCH (08:51)
[2017-06-17] MEDS: LACTULOSE 20 GM/30 ML UDCUP PO SCH ×2 (08:51→13:10)
[2017-06-17] MEDS: MULTIVITAMIN INJ 10 ML in DEXTROSE 5% 1,000 ML IV SCH (11:05)
[2017-06-17] MEDS: FOLIC ACID INJ 1 MG in SYRINGE 1 EACH IV SCH (11:05)
[2017-06-17 11:27] VITALS: BP 138/80
[2017-06-17] MEDS ORDERED: LEVOFLOXACIN 500 MG TABLET PO SCH (14:00)
== END 2017-06-17 14:21 | DRG 441 ==
LOC: EDBD → EDUNIT# → N.ED 09:16 → SUATTDRO 10:15 → N.EDINP 10:15 → N.CC 14:02 → N.5E 06-12 14:53
PROVIDERS: ADMIT Family Medicine; ATTEND Hospitalist

== ENCOUNTER 2018-05-14 08:35 | Inpatient (IN) ==
[2018-05-14] MEDS ORDERED: PROMETHAZINE 25 MG/1 ML VIAL IM PRN (09:36)
[2018-05-14] MEDS ORDERED: ONDANSETRON 4 MG/2 ML VIAL IV PRN (09:36)
[2018-05-14 09:59] LABS: Basophils % 0.8 % (0.0-0.8); Eosinophils # 0.7 10*3/uL (0.0-0.87); Eosinophils % 17.8 % (0.00-10.9); Hematocrit 26.5 VOL% (42.0-52.0); Hemoglobin 9.1 GM/DL (14.0-18.0); Immature Granulocytes % 0.3 %; Immature Granulocytes Absolute 0.01 #; Lymphocytes # 1.3 10*3/uL (1.4-4.0); Lymphocytes % 33.8 % (21.2-54.2); Mean Corpuscular HGB Conc 34.3 GM/DL (32-36); Mean Corpuscular Hemoglobin 35 PG (27-34); Mean Corpuscular Volume 102.3 FL (87-102); Mean Platelet Volume 11.1 FL (9.6-12.0); Monocytes # 0.5 10*3/uL (0.11-0.8); Monocytes % 12.2 % (1.7-12.7); Neutrophils # 1.3 10*3/uL (1.4-7.4); Neutrophils % 35.1 % (38.7-73.9); Platelet Count 146 T/CUMM (130-400); Red Blood Count 2.59 MC/CUMM (3.8-5.5); Red Cell Distribution Width 21.2 % (9.3-17.3); White Blood Count 3.7 T/CUMM (4-12)
[2018-05-14 10:08] LABS: INR 1.2; PT Patient Result 13.4 SECS; Partial Thromboplastin Time 28.6 SECS (0-40)
[2018-05-14 10:20] LABS: Risk Ratio 14.08
[2018-05-14 10:26] LABS: Eosinophils 22 % (0-10); Hypochromasia 1+; Lymphocytes 26 % (20-55); Nucleated Red Blood Cells 1 (0-5); Ovalocytes Slight; Platelet Estimate Normal; Segmented Neutrophils 45 % (50-85); Total Cells Counted 100
[2018-05-14 10:27] LABS: Macrocytosis Slight
[2018-05-14 10:29] LABS: Albumin 1.5 G/DL (3.4-5.0); Bilirubin,Total 3.7 MG/DL (0.2-1.0); Calcium 7.8 MG/DL (8.5-10.1); Osmolality,Calculated 277.4 MOS/KG (273-304); Thyroid Stimulating Hormone 3.54 uIU/ml (0.358-3.74); Total Protein 6.9 G/DL (6.4-8.3)
[2018-05-14] MEDS ORDERED: MAGNESIUM SULF RIDER 2 GM in PREMIX 1 EACH IV ONE (10:32)
[2018-05-14 10:57] LABS: % Iron Saturation 33.8 % (18-50); Ferritin 218.4 ng/ml (26-388)
[2018-05-14] MEDS ORDERED: ALBUMIN 25% 25 GM in PREMIX 1 EACH IV SCH (11:00)
[2018-05-14] MEDS: ALBUMIN 25% 25 GM in PREMIX 1 EACH IV SCH ×2 (11:00→21:46)
[2018-05-14 11:04] LABS: Folate 15.4 NG/ML (5.4-24.0)
[2018-05-14 11:09] LABS: Hepatitis A Ab IgM Quant 0.22 Index; Hepatitis A Ab IgM Result Negative (Negative); Hepatitis B Core IgM Quant 0.09 Index; Hepatitis B Core IgM Result Negative (Negative); Hepatitis B Surface Ag Quant < 0.10 Index; Hepatitis B Surface Ag Result Negative (Negative); Hepatitis C Virus Ab Quant 0.19 Index; Hepatitis C Virus Ab Result Negative (Negative)
[2018-05-14 12:55] LABS: INR 1.3; PT Patient Result 13.8 SECS; Partial Thromboplastin Time 30.2 SECS (0-40)
[2018-05-14] MEDS: FUROSEMIDE 40 MG/4 ML VIAL IV SCH ×2 (14:25→15:44)
[2018-05-14 15:47] LABS: Neutrophils,Peritoneal Fluid 2 %
[2018-05-14 15:48] LABS: RBC,Peritoneal Fluid > 100000 T/CUMM
[2018-05-14] MEDS ORDERED: FUROSEMIDE 40 MG/4 ML VIAL IV SCH (16:00)
[2018-05-14 16:15] LABS: Total Protein,Peritoneal Fluid 1.9 G/DL
[2018-05-14 16:17] LABS: Apearance,Urine CLEAR (Clear); Bacteria,Urine Occasional /HPF (Few); Bilirubin,Urine Negative (Negative); Blood, Urine Small mg/dL (Negative); Glucose,Urine (UA) Negative (Negative); Ketones,Urine Negative (Negative); Mucus,Urine Occasional /LPF (Occasional); Nitrite,Urine Negative (Negative); Protein,Urine Negative; RBC,Urine 1 /HPF (0-4); Urine Color Yellow (Yellow); Urine Specific Gravity 1.009 (1.001-1.035); Urine Urobilinogen < 2.0 EU/DL (0.2-1.0); WBC,Urine 1 /HPF (0-6)
[2018-05-14 20:51] LABS: Hematocrit 24.5 VOL% (42.0-52.0); Hemoglobin 8.4 GM/DL (14.0-18.0)
[2018-05-14] MEDS ORDERED: SPIRONOLACTONE 25 MG TABLET PO SCH (21:00)
[2018-05-14] MEDS: DOCUSATE/SENNA 50-8.6 MG TABLET PO SCH (21:45)
[2018-05-14] MEDS: SPIRONOLACTONE 50 MG TABLET PO SCH (21:45)
[2018-05-14] MEDS: RIFAXIMIN 550 MG TABLET PO SCH (21:45)
[2018-05-15 05:05] LABS: Hematocrit 23.1 VOL% (42.0-52.0)
[2018-05-15 05:18] LABS: Albumin 1.8 G/DL (3.4-5.0); Bilirubin,Total 3.6 MG/DL (0.2-1.0); Calcium 7.5 MG/DL (8.5-10.1); Potassium 3.5 MMOL/L (3.5-5.1); Total Protein 5.8 G/DL (6.4-8.3)
[2018-05-15 05:34] LABS: Basophils % 0.9 % (0.0-0.8); Eosinophils # 0.7 10*3/uL (0.0-0.87); Eosinophils % 20.2 % (0.00-10.9); Hematocrit 23.3 VOL% (42.0-52.0); Hemoglobin 8.1 GM/DL (14.0-18.0); Immature Granulocytes % 0.3 %; Immature Granulocytes Absolute 0.01 #; Lymphocytes # 1.2 10*3/uL (1.4-4.0); Lymphocytes % 34.4 % (21.2-54.2); Mean Corpuscular HGB Conc 34.8 GM/DL (32-36); Mean Corpuscular Hemoglobin 35 PG (27-34); Mean Platelet Volume 11.5 FL (9.6-12.0); Monocytes # 0.5 10*3/uL (0.11-0.8); Monocytes % 13.6 % (1.7-12.7); Neutrophils # 1.1 10*3/uL (1.4-7.4); Neutrophils % 30.6 % (38.7-73.9); Platelet Count 129 T/CUMM (130-400); Red Blood Count 2.33 MC/CUMM (3.8-5.5); Red Cell Distribution Width 20.8 % (9.3-17.3); White Blood Count 3.5 T/CUMM (4-12)
[2018-05-15 06:04] LABS: Eosinophils 23 % (0-10); Lymphocytes 34 % (20-55); Platelet Estimate Decreased; Segmented Neutrophils 30 % (50-85); Total Cells Counted 100
[2018-05-15 06:05] LABS: Hypochromasia 2+; Ovalocytes 1+; Target Cells 3+
[2018-05-15 06:06] LABS: Anisocytosis 3+; Macrocytosis 1+; Microcytosis 2+
[2018-05-15] MEDS ORDERED: PROPOFOL 200 MG/20 ML VIAL IV ONE (09:00)
[2018-05-15] MEDS ORDERED: PANTOPRAZOLE 40 MG TABLET PO SCH (09:00)
[2018-05-15] MEDS ORDERED: LIDOCAINE 2% 5 ML VIAL ONE (09:00)
[2018-05-15] MEDS ORDERED: SODIUM CHLORIDE 0.9% 1,000 ML IV PRN (10:10)
[2018-05-15] MEDS ORDERED: FUROSEMIDE 40 MG/4 ML VIAL IV ONE (10:10)
[2018-05-15] MEDS: FUROSEMIDE 40 MG/4 ML VIAL IV SCH ×2 (10:17→17:10)
[2018-05-15] MEDS: THIAMINE 100 MG TABLET PO SCH (10:46)
[2018-05-15] MEDS: DOCUSATE/SENNA 50-8.6 MG TABLET PO SCH ×2 (10:46→20:33)
[2018-05-15] MEDS: ALBUMIN 25% 25 GM in PREMIX 1 EACH IV SCH ×2 (10:46→20:32)
[2018-05-15] MEDS: PANTOPRAZOLE 40 MG TABLET PO SCH (10:47)
[2018-05-15] MEDS: RIFAXIMIN 550 MG TABLET PO SCH ×2 (10:47→20:33)
[2018-05-15] MEDS: FOLIC ACID 1 MG TABLET PO SCH (10:47)
[2018-05-15] MEDS: LISINOPRIL 5 MG TABLET PO SCH (10:47)
[2018-05-15] MEDS: SPIRONOLACTONE 50 MG TABLET PO SCH ×2 (10:47→20:33)
[2018-05-15 13:15] LABS: Hematocrit 26.4 VOL% (42.0-52.0)
[2018-05-15] MEDS ORDERED: POTASSIUM CHLORIDE 20 MEQ TABLET PO ONE (16:56)
[2018-05-15 22:00] LABS: Hematocrit 30.6 VOL% (42.0-52.0); Hemoglobin 10.5 GM/DL (14.0-18.0)
[2018-05-16 06:40] LABS: Hematocrit 28.1 VOL% (42.0-52.0)
[2018-05-16 07:05] LABS: Calcium 7.5 MG/DL (8.5-10.1); Osmolality,Calculated 280.1 MOS/KG (273-304); Potassium 3.2 MMOL/L (3.5-5.1)
[2018-05-16] MEDS ORDERED: MAGNESIUM SULF RIDER 2 GM in PREMIX 1 EACH IV ONE (07:19)
[2018-05-16] MEDS: POTASSIUM CHLORIDE 20 MEQ TABLET PO SCH ×2 (09:42→14:17)
[2018-05-16] MEDS: SPIRONOLACTONE 50 MG TABLET PO SCH ×2 (09:42→21:03)
[2018-05-16] MEDS: RIFAXIMIN 550 MG TABLET PO SCH ×2 (09:42→21:04)
[2018-05-16] MEDS: LISINOPRIL 5 MG TABLET PO SCH (09:42)
[2018-05-16] MEDS: PANTOPRAZOLE 40 MG TABLET PO SCH (09:43)
[2018-05-16] MEDS: FUROSEMIDE 40 MG/4 ML VIAL IV SCH ×2 (09:43→15:18)
[2018-05-16] MEDS: DOCUSATE/SENNA 50-8.6 MG TABLET PO SCH ×3 (09:43→21:04)
[2018-05-16] MEDS: THIAMINE 100 MG TABLET PO SCH (09:43)
[2018-05-16] MEDS: FOLIC ACID 1 MG TABLET PO SCH (09:43)
[2018-05-16] MEDS: ALBUMIN 25% 25 GM in PREMIX 1 EACH IV SCH ×2 (11:32→21:09)
[2018-05-17 05:44] LABS: Basophils % 0.9 % (0.0-0.8); Eosinophils # 0.7 10*3/uL (0.0-0.87); Eosinophils % 15.9 % (0.00-10.9); Hematocrit 26.3 VOL% (42.0-52.0); Hemoglobin 9.2 GM/DL (14.0-18.0); Immature Granulocytes % 0.2 %; Immature Granulocytes Absolute 0.01 #; Lymphocytes # 1.4 10*3/uL (1.4-4.0); Lymphocytes % 31.6 % (21.2-54.2); Mean Corpuscular Hemoglobin 33 PG (27-34); Mean Corpuscular Volume 94.3 FL (87-102); Mean Platelet Volume 11.5 FL (9.6-12.0); Monocytes # 0.7 10*3/uL (0.11-0.8); Monocytes % 16.6 % (1.7-12.7); Neutrophils # 1.5 10*3/uL (1.4-7.4); Neutrophils % 34.8 % (38.7-73.9); Platelet Count 120 T/CUMM (130-400); Red Blood Count 2.79 MC/CUMM (3.8-5.5); Red Cell Distribution Width 21.2 % (9.3-17.3); White Blood Count 4.4 T/CUMM (4-12)
[2018-05-17 06:10] LABS: Albumin 2.3 G/DL (3.4-5.0); Bilirubin,Total 3.2 MG/DL (0.2-1.0); Calcium 7.3 MG/DL (8.5-10.1); Osmolality,Calculated 281.1 MOS/KG (273-304); Potassium 3.7 MMOL/L (3.5-5.1); Total Protein 5.7 G/DL (6.4-8.3)
[2018-05-17 06:26] LABS: Eosinophils 8 % (0-10); Hypochromasia 1+; Lymphocytes 27 % (20-55); Platelet Estimate Decreased; Polychromasia Few; Segmented Neutrophils 55 % (50-85); Target Cells 1+; Total Cells Counted 100
[2018-05-17] MEDS: DOCUSATE/SENNA 50-8.6 MG TABLET PO SCH ×2 (09:27→21:15)
[2018-05-17] MEDS: ALBUMIN 25% 25 GM in PREMIX 1 EACH IV SCH ×2 (09:49→21:11)
[2018-05-17] MEDS: FUROSEMIDE 40 MG/4 ML VIAL IV SCH ×2 (09:50→16:42)
[2018-05-17] MEDS: RIFAXIMIN 550 MG TABLET PO SCH ×2 (09:50→21:07)
[2018-05-17] MEDS: THIAMINE 100 MG TABLET PO SCH (09:51)
[2018-05-17] MEDS: LISINOPRIL 5 MG TABLET PO SCH (09:51)
[2018-05-17] MEDS: FOLIC ACID 1 MG TABLET PO SCH (09:51)
[2018-05-17] MEDS: SPIRONOLACTONE 50 MG TABLET PO SCH ×2 (09:51→21:07)
[2018-05-17] MEDS: PANTOPRAZOLE 40 MG TABLET PO SCH (09:51)
[2018-05-18 04:37] LABS: Basophils % 0.4 % (0.0-0.8); Eosinophils # 0.6 10*3/uL (0.0-0.87); Eosinophils % 12.9 % (0.00-10.9); Hematocrit 22.7 VOL% (42.0-52.0); Immature Granulocytes % 0.2 %; Immature Granulocytes Absolute 0.01 #; Lymphocytes # 1.8 10*3/uL (1.4-4.0); Lymphocytes % 35.4 % (21.2-54.2); Mean Corpuscular HGB Conc 35.2 GM/DL (32-36); Mean Corpuscular Hemoglobin 33 PG (27-34); Mean Corpuscular Volume 94.6 FL (87-102); Mean Platelet Volume 11.8 FL (9.6-12.0); Monocytes # 0.8 10*3/uL (0.11-0.8); Neutrophils # 1.7 10*3/uL (1.4-7.4); Neutrophils % 35.1 % (38.7-73.9); Platelet Count 108 T/CUMM (130-400); Red Cell Distribution Width 20.7 % (9.3-17.3)
[2018-05-18 04:51] LABS: INR 1.5; PT Patient Result 16.1 SECS; Partial Thromboplastin Time 34.2 SECS (0-40)
[2018-05-18 05:04] LABS: Albumin 2.6 G/DL (3.4-5.0); Bilirubin,Total 4.7 MG/DL (0.2-1.0); Calcium 7.5 MG/DL (8.5-10.1); Osmolality,Calculated 279.3 MOS/KG (273-304); Potassium 3.7 MMOL/L (3.5-5.1); Total Protein 5.7 G/DL (6.4-8.3)
[2018-05-18 05:15] LABS: Eosinophils 11 % (0-10); Hypochromasia 1+; Lymphocytes 29 % (20-55); Platelet Estimate Decreased; Segmented Neutrophils 45 % (50-85); Total Cells Counted 100
[2018-05-18 05:16] LABS: Macrocytosis Slight; Ovalocytes Slight
[2018-05-18] MEDS: FUROSEMIDE 40 MG/4 ML VIAL IV SCH ×2 (08:26→15:09)
[2018-05-18] MEDS: ALBUMIN 25% 25 GM in PREMIX 1 EACH IV SCH ×2 (08:27→20:32)
[2018-05-18] MEDS: SPIRONOLACTONE 50 MG TABLET PO SCH ×2 (08:52→20:32)
[2018-05-18] MEDS: LISINOPRIL 5 MG TABLET PO SCH (08:53)
[2018-05-18] MEDS: PANTOPRAZOLE 40 MG TABLET PO SCH (08:53)
[2018-05-18] MEDS: DOCUSATE/SENNA 50-8.6 MG TABLET PO SCH ×2 (08:53→20:33)
[2018-05-18] MEDS: THIAMINE 100 MG TABLET PO SCH (08:53)
[2018-05-18] MEDS: FOLIC ACID 1 MG TABLET PO SCH (08:53)
[2018-05-18] MEDS: RIFAXIMIN 550 MG TABLET PO SCH ×2 (08:54→20:32)
[2018-05-18 13:16] LABS: Hematocrit 25.5 VOL% (42.0-52.0); Hemoglobin 8.8 GM/DL (14.0-18.0)
[2018-05-19 05:15] LABS: Albumin 2.7 G/DL (3.4-5.0); Bilirubin,Total 5.2 MG/DL (0.2-1.0); Calcium 7.7 MG/DL (8.5-10.1); Osmolality,Calculated 278.4 MOS/KG (273-304); Potassium 3.9 MMOL/L (3.5-5.1); Total Protein 5.9 G/DL (6.4-8.3)
[2018-05-19] MEDS ORDERED: IBUPROFEN 400 MG TABLET PO ONE (05:16)
[2018-05-19 06:22] LABS: Basophils % 0.5 % (0.0-0.8); Eosinophils # 0.4 10*3/uL (0.0-0.87); Hematocrit 24.4 VOL% (42.0-52.0); Hemoglobin 8.4 GM/DL (14.0-18.0); Immature Granulocytes % 0.2 %; Immature Granulocytes Absolute 0.01 #; Lymphocytes # 1.4 10*3/uL (1.4-4.0); Lymphocytes % 23.7 % (21.2-54.2); Mean Corpuscular HGB Conc 34.4 GM/DL (32-36); Mean Corpuscular Hemoglobin 33 PG (27-34); Mean Corpuscular Volume 96.1 FL (87-102); Mean Platelet Volume 12.2 FL (9.6-12.0); Monocytes # 1.1 10*3/uL (0.11-0.8); Monocytes % 17.6 % (1.7-12.7); Neutrophils # 3.1 10*3/uL (1.4-7.4); Platelet Count 110 T/CUMM (130-400); Red Blood Count 2.54 MC/CUMM (3.8-5.5); Red Cell Distribution Width 20.4 % (9.3-17.3)
[2018-05-19 06:46] LABS: Eosinophils 6 % (0-10); Lymphocytes 20 % (20-55); Segmented Neutrophils 71 % (50-85); Total Cells Counted 100
[2018-05-19 06:47] LABS: Hypochromasia 1+; Microcytosis 1+; Platelet Estimate Decreased; Target Cells Few
[2018-05-19] MEDS ORDERED: MAGNESIUM SULF RIDER 2 GM in PREMIX 1 EACH IV ONE (08:27)
[2018-05-19] MEDS: RIFAXIMIN 550 MG TABLET PO SCH ×2 (08:56→20:47)
[2018-05-19] MEDS: DOCUSATE/SENNA 50-8.6 MG TABLET PO SCH ×2 (08:57→20:47)
[2018-05-19] MEDS: SPIRONOLACTONE 50 MG TABLET PO SCH ×2 (08:57→20:47)
[2018-05-19] MEDS: THIAMINE 100 MG TABLET PO SCH (08:57)
[2018-05-19] MEDS: FUROSEMIDE 40 MG/4 ML VIAL IV SCH ×2 (08:58→15:43)
[2018-05-19] MEDS: LISINOPRIL 5 MG TABLET PO SCH (08:58)
[2018-05-19] MEDS: PANTOPRAZOLE 40 MG TABLET PO SCH (08:58)
[2018-05-19] MEDS: ALBUMIN 25% 25 GM in PREMIX 1 EACH IV SCH ×2 (08:59→20:47)
[2018-05-19] MEDS: FOLIC ACID 1 MG TABLET PO SCH (09:39)
[2018-05-19] MEDS ORDERED: POLYETHYLENE GLYCOL POWDER 17 GM PACK PO PRN (10:23)
[2018-05-20 05:15] LABS: Basophils % 0.6 % (0.0-0.8); Eosinophils # 0.7 10*3/uL (0.0-0.87); Eosinophils % 13.6 % (0.00-10.9); Hematocrit 22.5 VOL% (42.0-52.0); Hemoglobin 7.9 GM/DL (14.0-18.0); Immature Granulocytes % 0.4 %; Immature Granulocytes Absolute 0.02 #; Lymphocytes # 1.2 10*3/uL (1.4-4.0); Lymphocytes % 23.3 % (21.2-54.2); Mean Corpuscular HGB Conc 35.1 GM/DL (32-36); Mean Corpuscular Hemoglobin 34 PG (27-34); Mean Corpuscular Volume 95.3 FL (87-102); Mean Platelet Volume 11.8 FL (9.6-12.0); Monocytes % 19.4 % (1.7-12.7); Neutrophils # 2.2 10*3/uL (1.4-7.4); Neutrophils % 42.7 % (38.7-73.9); Red Blood Count 2.36 MC/CUMM (3.8-5.5); Red Cell Distribution Width 20.4 % (9.3-17.3); White Blood Count 5.2 T/CUMM (4-12)
[2018-05-20 05:21] LABS: Platelet Count 99 T/CUMM (130-400)
[2018-05-20 05:37] LABS: Albumin 2.6 G/DL (3.4-5.0); Bilirubin,Total 5.8 MG/DL (0.2-1.0); Calcium 7.4 MG/DL (8.5-10.1); Osmolality,Calculated 279.5 MOS/KG (273-304); Potassium 3.3 MMOL/L (3.5-5.1); Total Protein 5.7 G/DL (6.4-8.3)
[2018-05-20 06:31] LABS: Band Neutrophils 2 % (0-10); Eosinophils 12 % (0-10); Hypochromasia 2+; Lymphocytes 25 % (20-55); Platelet Estimate Decreased; Segmented Neutrophils 43 % (50-85); Target Cells 2+; Total Cells Counted 101
[2018-05-20] MEDS ORDERED: SODIUM CHLORIDE 0.9% 1,000 ML IV PRN (08:13)
[2018-05-20] MEDS ORDERED: FUROSEMIDE 40 MG/4 ML VIAL IV ONE (09:11)
[2018-05-20] MEDS ORDERED: NICOTINE 21 MG/24 HR PATCH TRANSDERM PRN (09:14)
[2018-05-20] MEDS: ALBUMIN 25% 25 GM in PREMIX 1 EACH IV SCH ×2 (09:46→23:43)
[2018-05-20] MEDS: SPIRONOLACTONE 50 MG TABLET PO SCH ×2 (09:53→21:29)
[2018-05-20] MEDS: FOLIC ACID 1 MG TABLET PO SCH (09:54)
[2018-05-20] MEDS: PANTOPRAZOLE 40 MG TABLET PO SCH (09:54)
[2018-05-20] MEDS: RIFAXIMIN 550 MG TABLET PO SCH ×2 (09:55→21:29)
[2018-05-20] MEDS: THIAMINE 100 MG TABLET PO SCH (09:55)
[2018-05-20] MEDS: DOCUSATE/SENNA 50-8.6 MG TABLET PO SCH ×2 (09:55→21:29)
[2018-05-20] MEDS: LISINOPRIL 5 MG TABLET PO SCH (09:56)
[2018-05-20] MEDS: FUROSEMIDE 40 MG/4 ML VIAL IV SCH ×2 (12:50→16:54)
[2018-05-20] MEDS: LACTULOSE 20 GM/30 ML UDCUP PO SCH ×2 (14:05→18:00)
[2018-05-21] MEDS: LACTULOSE 20 GM/30 ML UDCUP PO SCH ×4 (01:25→22:54)
[2018-05-21 04:43] LABS: Basophils % 0.7 % (0.0-0.8); Eosinophils # 0.6 10*3/uL (0.0-0.87); Eosinophils % 10.1 % (0.00-10.9); Hematocrit 26.3 VOL% (42.0-52.0); Hemoglobin 9.2 GM/DL (14.0-18.0); Immature Granulocytes % 0.3 %; Immature Granulocytes Absolute 0.02 #; Lymphocytes # 1.7 10*3/uL (1.4-4.0); Mean Corpuscular Hemoglobin 33 PG (27-34); Mean Corpuscular Volume 93.3 FL (87-102); Mean Platelet Volume 11.9 FL (9.6-12.0); Monocytes # 1.1 10*3/uL (0.11-0.8); Monocytes % 17.6 % (1.7-12.7); Neutrophils # 2.5 10*3/uL (1.4-7.4); Neutrophils % 42.3 % (38.7-73.9); Platelet Count 110 T/CUMM (130-400); Red Blood Count 2.82 MC/CUMM (3.8-5.5); Red Cell Distribution Width 18.3 % (9.3-17.3)
[2018-05-21 05:04] LABS: Albumin 3.4 G/DL (3.4-5.0); Bilirubin,Total 7.9 MG/DL (0.2-1.0); Osmolality,Calculated 274.7 MOS/KG (273-304); Potassium 3.4 MMOL/L (3.5-5.1); Total Protein 6.5 G/DL (6.4-8.3)
[2018-05-21 05:05] LABS: Atypical Lymphocytes Few; Band Neutrophils 3 % (0-10); Eosinophils 12 % (0-10); Hypochromasia 1+; Lymphocytes 26 % (20-55); Segmented Neutrophils 45 % (50-85); Target Cells Slight; Total Cells Counted 100
[2018-05-21 05:06] LABS: Anisocytosis 1+; Macrocytosis 1+; Platelet Estimate Decreased; Polychromasia Slight
[2018-05-21] MEDS: FUROSEMIDE 40 MG/4 ML VIAL IV SCH ×2 (09:29→17:18)
[2018-05-21] MEDS: ALBUMIN 25% 25 GM in PREMIX 1 EACH IV SCH ×2 (10:43→20:28)
[2018-05-21] MEDS: cefTRIAXone 1,000 MG in SYRINGE 1 EACH IV SCH (10:43)
[2018-05-21] MEDS: SPIRONOLACTONE 50 MG TABLET PO SCH ×2 (10:51→20:21)
[2018-05-21] MEDS: POTASSIUM CHLORIDE 20 MEQ TABLET PO SCH (10:52)
[2018-05-21] MEDS: PANTOPRAZOLE 40 MG TABLET PO SCH (10:52)
[2018-05-21] MEDS: FOLIC ACID 1 MG TABLET PO SCH (10:52)
[2018-05-21] MEDS: THIAMINE 100 MG TABLET PO SCH (10:53)
[2018-05-21] MEDS: RIFAXIMIN 550 MG TABLET PO SCH ×2 (10:53→20:21)
[2018-05-21] MEDS: DOCUSATE/SENNA 50-8.6 MG TABLET PO SCH ×2 (10:53→20:21)
[2018-05-21 15:49] LABS: Apearance,Urine CLEAR (Clear); Bilirubin,Urine Negative (Negative); Blood, Urine Negative (Negative); Glucose,Urine (UA) Negative (Negative); Hyaline Casts,Urine 1 /LPF (0-3); Ketones,Urine Negative (Negative); Mucus,Urine Occasional /LPF (Occasional); Nitrite,Urine Negative (Negative); Protein,Urine Negative; RBC,Urine <1 /HPF (0-4); Urine Color Yellow (Yellow); Urine Specific Gravity 1.005 (1.001-1.035); Urine Urobilinogen < 2.0 EU/DL (0.2-1.0); WBC,Urine <1 /HPF (0-6)
[2018-05-22] MEDS: LACTULOSE 20 GM/30 ML UDCUP PO SCH ×3 (05:16→21:53)
[2018-05-22 05:22] LABS: Basophils % 0.7 % (0.0-0.8); Eosinophils # 0.7 10*3/uL (0.0-0.87); Eosinophils % 16.2 % (0.00-10.9); Hematocrit 25.1 VOL% (42.0-52.0); Hemoglobin 8.8 GM/DL (14.0-18.0); Immature Granulocytes % 0.2 %; Immature Granulocytes Absolute 0.01 #; Lymphocytes # 1.2 10*3/uL (1.4-4.0); Lymphocytes % 27.4 % (21.2-54.2); Mean Corpuscular HGB Conc 35.1 GM/DL (32-36); Mean Corpuscular Hemoglobin 33 PG (27-34); Mean Corpuscular Volume 93.7 FL (87-102); Mean Platelet Volume 11.9 FL (9.6-12.0); Monocytes # 0.7 10*3/uL (0.11-0.8); Monocytes % 15.1 % (1.7-12.7); Neutrophils # 1.8 10*3/uL (1.4-7.4); Neutrophils % 40.4 % (38.7-73.9); Platelet Count 120 T/CUMM (130-400); Red Blood Count 2.68 MC/CUMM (3.8-5.5); Red Cell Distribution Width 18.8 % (9.3-17.3); White Blood Count 4.4 T/CUMM (4-12)
[2018-05-22 05:47] LABS: Calcium 7.8 MG/DL (8.5-10.1); Osmolality,Calculated 277.4 MOS/KG (273-304); Potassium 3.6 MMOL/L (3.5-5.1)
[2018-05-22 06:10] LABS: Eosinophils 17 % (0-10); Hypochromasia 2+; Lymphocytes 31 % (20-55); Nucleated Red Blood Cells 1 (0-5); Platelet Estimate Decreased; Segmented Neutrophils 39 % (50-85); Target Cells 1+; Total Cells Counted 100
[2018-05-22] MEDS: cefTRIAXone 1,000 MG in SYRINGE 1 EACH IV SCH (09:44)
[2018-05-22] MEDS: ALBUMIN 25% 25 GM in PREMIX 1 EACH IV SCH ×2 (09:46→22:00)
[2018-05-22] MEDS: SPIRONOLACTONE 50 MG TABLET PO SCH ×2 (09:49→21:54)
[2018-05-22] MEDS: FOLIC ACID 1 MG TABLET PO SCH (09:49)
[2018-05-22] MEDS: LISINOPRIL 5 MG TABLET PO SCH (09:49)
[2018-05-22] MEDS: DOCUSATE/SENNA 50-8.6 MG TABLET PO SCH ×2 (09:50→21:53)
[2018-05-22] MEDS: RIFAXIMIN 550 MG TABLET PO SCH ×2 (09:50→21:53)
[2018-05-22] MEDS: PANTOPRAZOLE 40 MG TABLET PO SCH (09:50)
[2018-05-22] MEDS: POTASSIUM CHLORIDE 20 MEQ TABLET PO SCH (09:50)
[2018-05-22] MEDS: THIAMINE 100 MG TABLET PO SCH (09:50)
[2018-05-22] MEDS: FUROSEMIDE 40 MG/4 ML VIAL IV SCH ×3 (12:04→23:15)
[2018-05-23] MEDS: HYDROmorphone 2 MG TABLET PO PRN (01:16)
[2018-05-23 05:18] LABS: Basophils % 0.5 % (0.0-0.8); Eosinophils # 0.7 10*3/uL (0.0-0.87); Eosinophils % 17.6 % (0.00-10.9); Hemoglobin 9.2 GM/DL (14.0-18.0); Immature Granulocytes % 0.5 %; Immature Granulocytes Absolute 0.02 #; Lymphocytes # 0.8 10*3/uL (1.4-4.0); Lymphocytes % 22.2 % (21.2-54.2); Mean Corpuscular HGB Conc 35.4 GM/DL (32-36); Mean Corpuscular Hemoglobin 33 PG (27-34); Mean Corpuscular Volume 93.9 FL (87-102); Mean Platelet Volume 11.9 FL (9.6-12.0); Monocytes # 0.6 10*3/uL (0.11-0.8); Monocytes % 16.8 % (1.7-12.7); Neutrophils # 1.6 10*3/uL (1.4-7.4); Neutrophils % 42.4 % (38.7-73.9); Platelet Count 130 T/CUMM (130-400); Red Blood Count 2.77 MC/CUMM (3.8-5.5); Red Cell Distribution Width 19.1 % (9.3-17.3); White Blood Count 3.7 T/CUMM (4-12)
[2018-05-23 05:34] LABS: Calcium 8.3 MG/DL (8.5-10.1); Potassium 3.6 MMOL/L (3.5-5.1)
[2018-05-23 06:36] LABS: Anisocytosis 1+; Band Neutrophils 3 % (0-10); Eosinophils 16 % (0-10); Lymphocytes 18 % (20-55); Platelet Estimate Decreased; Segmented Neutrophils 53 % (50-85); Total Cells Counted 100
[2018-05-23 06:37] LABS: Hypochromasia Slight; Macrocytosis 1+; Target Cells 1+
[2018-05-23] MEDS: LACTULOSE 20 GM/30 ML UDCUP PO SCH ×3 (06:59→21:37)
[2018-05-23] MEDS: LISINOPRIL 5 MG TABLET PO SCH (09:38)
[2018-05-23] MEDS: SPIRONOLACTONE 50 MG TABLET PO SCH ×2 (09:38→21:36)
[2018-05-23] MEDS: POTASSIUM CHLORIDE 20 MEQ TABLET PO SCH (09:39)
[2018-05-23] MEDS: RIFAXIMIN 550 MG TABLET PO SCH ×2 (09:39→21:35)
[2018-05-23] MEDS: TAMSULOSIN 0.4 MG CAPSULE PO SCH (09:39)
[2018-05-23] MEDS: FOLIC ACID 1 MG TABLET PO SCH (09:39)
[2018-05-23] MEDS: PANTOPRAZOLE 40 MG TABLET PO SCH (09:39)
[2018-05-23] MEDS: THIAMINE 100 MG TABLET PO SCH (09:39)
[2018-05-23] MEDS: DOCUSATE/SENNA 50-8.6 MG TABLET PO SCH ×2 (09:39→21:35)
[2018-05-23] MEDS: cefTRIAXone 1,000 MG in SYRINGE 1 EACH IV SCH (09:47)
[2018-05-23] MEDS: FUROSEMIDE 40 MG/4 ML VIAL IV SCH (10:20)
[2018-05-24 05:49] LABS: Basophils # 0.1 10*3/uL (0.0-0.2); Basophils % 1.2 % (0.0-0.8); Eosinophils # 0.8 10*3/uL (0.0-0.87); Eosinophils % 18.4 % (0.00-10.9); Hematocrit 26.3 VOL% (42.0-52.0); Hemoglobin 9.1 GM/DL (14.0-18.0); Immature Granulocytes % 0.5 %; Immature Granulocytes Absolute 0.02 #; Lymphocytes # 1.2 10*3/uL (1.4-4.0); Mean Corpuscular HGB Conc 34.6 GM/DL (32-36); Mean Corpuscular Hemoglobin 33 PG (27-34); Mean Corpuscular Volume 93.9 FL (87-102); Mean Platelet Volume 12.3 FL (9.6-12.0); Monocytes # 0.7 10*3/uL (0.11-0.8); Monocytes % 15.2 % (1.7-12.7); Neutrophils # 1.6 10*3/uL (1.4-7.4); Neutrophils % 37.7 % (38.7-73.9); Platelet Count 139 T/CUMM (130-400); Red Cell Distribution Width 19.6 % (9.3-17.3); White Blood Count 4.3 T/CUMM (4-12)
[2018-05-24] MEDS: LACTULOSE 20 GM/30 ML UDCUP PO SCH (06:20)
[2018-05-24 06:25] LABS: Anisocytosis 1+; Band Neutrophils 9 % (0-10); Calcium 8.3 MG/DL (8.5-10.1); Eosinophils 15 % (0-10); Lymphocytes 25 % (20-55); Macrocytosis 1+; Osmolality,Calculated 275.5 MOS/KG (273-304); Platelet Estimate Decreased; Potassium 3.7 MMOL/L (3.5-5.1); Segmented Neutrophils 41 % (50-85); Total Cells Counted 100
[2018-05-24 06:26] LABS: Target Cells 2+
[2018-05-24] MEDS: cefTRIAXone 1,000 MG in SYRINGE 1 EACH IV SCH (09:18)
[2018-05-24] MEDS: SPIRONOLACTONE 50 MG TABLET PO SCH ×2 (09:34→21:14)
[2018-05-24] MEDS: FUROSEMIDE 20 MG TABLET PO SCH (09:35)
[2018-05-24] MEDS: THIAMINE 100 MG TABLET PO SCH (09:35)
[2018-05-24] MEDS: TAMSULOSIN 0.4 MG CAPSULE PO SCH (09:35)
[2018-05-24] MEDS: LISINOPRIL 5 MG TABLET PO SCH (09:35)
[2018-05-24] MEDS: FOLIC ACID 1 MG TABLET PO SCH (09:35)
[2018-05-24] MEDS: DOCUSATE/SENNA 50-8.6 MG TABLET PO SCH ×2 (09:35→21:14)
[2018-05-24] MEDS: PANTOPRAZOLE 40 MG TABLET PO SCH (09:35)
[2018-05-24] MEDS: POTASSIUM CHLORIDE 20 MEQ TABLET PO SCH (09:35)
[2018-05-24] MEDS: RIFAXIMIN 550 MG TABLET PO SCH ×2 (09:35→21:14)
[2018-05-25 05:10] LABS: Basophils # 0.1 10*3/uL (0.0-0.2); Basophils % 1.2 % (0.0-0.8); Eosinophils # 0.7 10*3/uL (0.0-0.87); Eosinophils % 17.9 % (0.00-10.9); Hematocrit 25.6 VOL% (42.0-52.0); Immature Granulocytes % 0.5 %; Immature Granulocytes Absolute 0.02 #; Lymphocytes # 1.3 10*3/uL (1.4-4.0); Lymphocytes % 30.5 % (21.2-54.2); Mean Corpuscular HGB Conc 35.2 GM/DL (32-36); Mean Corpuscular Hemoglobin 33 PG (27-34); Mean Corpuscular Volume 94.5 FL (87-102); Monocytes # 0.7 10*3/uL (0.11-0.8); Monocytes % 16.9 % (1.7-12.7); Neutrophils # 1.4 10*3/uL (1.4-7.4); Platelet Count 134 T/CUMM (130-400); Red Blood Count 2.71 MC/CUMM (3.8-5.5); Red Cell Distribution Width 20.4 % (9.3-17.3); White Blood Count 4.1 T/CUMM (4-12)
[2018-05-25 05:40] LABS: Eosinophils 17 % (0-10); Lymphocytes 25 % (20-55); Segmented Neutrophils 46 % (50-85); Total Cells Counted 100
[2018-05-25 05:41] LABS: Hypochromasia 1+; Macrocytosis 1+; Polychromasia Slight; Target Cells 1+
[2018-05-25 05:42] LABS: Platelet Estimate Adequate
[2018-05-25 05:43] LABS: Atypical Lymphocytes Few
[2018-05-25 05:44] LABS: Calcium 8.4 MG/DL (8.5-10.1); Osmolality,Calculated 275.5 MOS/KG (273-304); Potassium 4.2 MMOL/L (3.5-5.1)
[2018-05-25] MEDS: RIFAXIMIN 550 MG TABLET PO SCH ×2 (08:32→20:13)
[2018-05-25] MEDS: LACTULOSE 20 GM/30 ML UDCUP PO SCH (08:32)
[2018-05-25] MEDS: PANTOPRAZOLE 40 MG TABLET PO SCH (08:33)
[2018-05-25] MEDS: TAMSULOSIN 0.4 MG CAPSULE PO SCH (08:33)
[2018-05-25] MEDS: THIAMINE 100 MG TABLET PO SCH (08:33)
[2018-05-25] MEDS: POTASSIUM CHLORIDE 20 MEQ TABLET PO SCH (08:33)
[2018-05-25] MEDS: LISINOPRIL 5 MG TABLET PO SCH (08:33)
[2018-05-25] MEDS: FUROSEMIDE 20 MG TABLET PO SCH (08:33)
[2018-05-25] MEDS: DOCUSATE/SENNA 50-8.6 MG TABLET PO SCH ×2 (08:33→20:13)
[2018-05-25] MEDS: SPIRONOLACTONE 50 MG TABLET PO SCH ×2 (08:33→20:13)
[2018-05-25] MEDS: FOLIC ACID 1 MG TABLET PO SCH (08:33)
[2018-05-25] MEDS: cefTRIAXone 1,000 MG in SYRINGE 1 EACH IV SCH (08:41)
[2018-05-26] MEDS: HYDROmorphone 2 MG TABLET PO PRN (00:31)
[2018-05-26] MEDS: LACTULOSE 20 GM/30 ML UDCUP PO SCH (08:46)
[2018-05-26] MEDS: POTASSIUM CHLORIDE 20 MEQ TABLET PO SCH (08:47)
[2018-05-26] MEDS: LISINOPRIL 5 MG TABLET PO SCH (08:47)
[2018-05-26] MEDS: THIAMINE 100 MG TABLET PO SCH (08:47)
[2018-05-26] MEDS: RIFAXIMIN 550 MG TABLET PO SCH ×2 (08:47→21:04)
[2018-05-26] MEDS: TAMSULOSIN 0.4 MG CAPSULE PO SCH (08:48)
[2018-05-26] MEDS: DOCUSATE/SENNA 50-8.6 MG TABLET PO SCH ×2 (08:48→21:04)
[2018-05-26] MEDS: FUROSEMIDE 20 MG TABLET PO SCH (08:48)
[2018-05-26] MEDS: PANTOPRAZOLE 40 MG TABLET PO SCH (08:48)
[2018-05-26] MEDS: FOLIC ACID 1 MG TABLET PO SCH (08:48)
[2018-05-26] MEDS: SPIRONOLACTONE 50 MG TABLET PO SCH ×2 (08:48→21:04)
[2018-05-26] MEDS: cefTRIAXone 1,000 MG in SYRINGE 1 EACH IV SCH (08:55)
[2018-05-26] MEDS: ENOXAPARIN 40 MG/0.4 ML SYRINGE SUBCUT SCH (12:23)
[2018-05-27 05:07] LABS: INR 1.2; PT Patient Result 13.5 SECS
[2018-05-27 05:33] LABS: Albumin 2.9 G/DL (3.4-5.0); Bilirubin,Total 7.1 MG/DL (0.2-1.0); Calcium 8.5 MG/DL (8.5-10.1); Osmolality,Calculated 272.8 MOS/KG (273-304); Potassium 4.4 MMOL/L (3.5-5.1); Total Protein 6.1 G/DL (6.4-8.3)
[2018-05-27] MEDS: POTASSIUM CHLORIDE 20 MEQ TABLET PO SCH (09:00)
[2018-05-27] MEDS: TAMSULOSIN 0.4 MG CAPSULE PO SCH (09:00)
[2018-05-27] MEDS: LACTULOSE 20 GM/30 ML UDCUP PO SCH (09:00)
[2018-05-27] MEDS: DOCUSATE/SENNA 50-8.6 MG TABLET PO SCH (09:00)
[2018-05-27] MEDS: RIFAXIMIN 550 MG TABLET PO SCH (09:00)
[2018-05-27] MEDS: FOLIC ACID 1 MG TABLET PO SCH (09:00)
[2018-05-27] MEDS: LISINOPRIL 5 MG TABLET PO SCH (09:01)
[2018-05-27] MEDS: cefTRIAXone 1,000 MG in SYRINGE 1 EACH IV SCH (09:01)
[2018-05-27] MEDS: FUROSEMIDE 20 MG TABLET PO SCH (09:01)
[2018-05-27] MEDS: PANTOPRAZOLE 40 MG TABLET PO SCH (09:01)
[2018-05-27] MEDS: SPIRONOLACTONE 50 MG TABLET PO SCH (09:01)
[2018-05-27] MEDS: THIAMINE 100 MG TABLET PO SCH (09:01)
[2018-05-27 11:45] VITALS: BP 108/55
[2018-05-27] MEDS: ENOXAPARIN 40 MG/0.4 ML SYRINGE SUBCUT SCH (13:28)
== END 2018-05-27 14:23 | disposition home or self-care (01) | DRG 436 ==
LOC: N.3E → SUATTDRO 08:52 → N.3E 05-23 10:55
PROVIDERS: ADMIT Internal Medicine; ATTEND Internal Medicine